=== PATIENT | male | born 1945 | race Caucasian/White ===

== ENCOUNTER 2018-09-07 11:24 | Outpatient (CLI) | payer BC, SELFPAY ==
--- NOTE | 2018-09-07 11:00 | DI.RAD_ITS ---
SYMPTOM/DIAGNOSIS: LOW BACK PAIN AND LT HIP PAIN, M25.552 LUMBAR SPINE: There are no prior comparison exams. The vertebral bodies and disc spaces are well maintained in height. There are minimal endplate osteophytes. There are mild facet joint degenerative changes. There is no scoliosis, spondylolysis or spondylolisthesis. The hip joints and SI joints are unremarkable where visualized. IMPRESSION: Mild degenerative changes.
[2018-09-07 12:41] LABS: ALT 24 U/L (12-78); AST 19 U/L (15-37); Albumin 3.5 g/dL (3.4-5.0); Alkaline Phosphatase 70 U/L (46-116); Anion Gap 9.1 mmol/L (3-11); BUN 16 mg/dL (7-18); Bilirubin, Direct 0.25 mg/dL (0.00-0.20); Bilirubin, Total 1.4 mg/dL (0.2-1.0); CO2 30.9 mmol/L (21.0-32.0); CREATININE 0.94 mg/dL (0.70-1.30); Calcium 8.9 mg/dL (8.5-10.1); Chloride 112 mmol/L (98-107); Glucose 84 mg/dL (70-100); Potassium 4.4 mmol/L (3.5-5.1); Sodium 152 mmol/L (136-145); Total Protein 6.2 g/dL (6.4-8.2)
[2018-09-08 10:17] LABS: PSA, Screening 1.6 ng/ml (0-6.5)
[2018-09-08 11:08] LABS: Hepatitis C Ab w Rflx HCV PCR Negative (NEGAT)
== END 2018-09-07 11:44 ==
PROVIDERS: PCP Emergency Medicine; Visit Provider Emergency Medicine
DX: M25.552 Pain in left hip (principal); Z80.0 Family history of malignant neoplasm of digestive organs; I10 Essential (primary) hypertension; M54.5 Low back pain; M47.816 Spondylosis without myelopathy or radiculopathy, lumbar region; Z12.5 Encounter for screening for malignant neoplasm of prostate
CPT/HCPCS: 36415; 80048; 80076; 84153; 86803; 72110

== ENCOUNTER 2018-09-09 10:58 | Outpatient (CLI) | payer BC, SELFPAY ==
[2018-09-09 13:04] LABS: ALT 24 U/L (12-78); AST 18 U/L (15-37); Albumin 3.6 g/dL (3.4-5.0); Alkaline Phosphatase 75 U/L (46-116); Anion Gap 6.4 mmol/L (3-11); BUN 20 mg/dL (7-18); Bilirubin, Total 1.4 mg/dL (0.2-1.0); CO2 30.6 mmol/L (21.0-32.0); CREATININE 1.04 mg/dL (0.70-1.30); Calcium 8.9 mg/dL (8.5-10.1); Calculated LDL 109 mg/dL; Chloride 108 mmol/L (98-107); Cholesterol 176 mg/dL (50-200); Glucose 87 mg/dL (70-100); HDL Cholesterol 57 mg/dL (40-60); Potassium 3.8 mmol/L (3.5-5.1); Sodium 145 mmol/L (136-145); Total Protein 6.4 g/dL (6.4-8.2); Triglyceride 51 mg/dL (30-150)
[2018-09-09 13:46] LABS: Bilirubin, Direct 0.25 mg/dL (0.00-0.20)
== END 2018-09-09 11:18 ==
LOC: LBO 11:04 → LOS 12:51
PROVIDERS: PCP Emergency Medicine; Visit Provider Emergency Medicine
DX: R89.9 Unspecified abnormal finding in specimens from other organs, systems and tissues (principal); I10 Essential (primary) hypertension
CPT/HCPCS: 36415; 80048; 80061; 80076; 83721

== ENCOUNTER 2018-12-25 01:05 | Outpatient (CLI) | payer BC, SELFPAY ==
[2018-12-25 10:39] LABS: ALT 22 U/L (16-63); AST 21 U/L (15-37); Albumin 3.9 g/dL (3.4-5.0); Alkaline Phosphatase 74 U/L (46-116); Bilirubin, Total 2.1 mg/dL (0.2-1.0); Calculated LDL 116 mg/dL; Cholesterol 182 mg/dL (50-200); HDL Cholesterol 59 mg/dL (40-60); Total Protein 6.8 g/dL (6.4-8.2); Triglyceride 36 mg/dL (30-150)
[2018-12-25 10:47] LABS: Bilirubin, Direct 0.39 mg/dL (0.00-0.20)
[2018-12-27 11:36] LABS: Hepatitis C Ab w Rflx HCV PCR Negative (NEGAT)
== END 2018-12-25 01:25 ==
PROVIDERS: PCP Emergency Medicine; Visit Provider Emergency Medicine
DX: Z80.0 Family history of malignant neoplasm of digestive organs (principal); I10 Essential (primary) hypertension; Z11.59 Encounter for screening for other viral diseases
CPT/HCPCS: 36415; 80061; 80076; 86803

== ENCOUNTER 2019-10-11 02:07 | Outpatient (CLI) | payer MEDICARE, SELFPAY ==
[2019-10-11 08:55] LABS: Platelet Count 112 x1000/uL (130-400)
== END 2019-10-11 02:27 ==
PROVIDERS: PCP Emergency Medicine; Visit Provider Emergency Medicine
DX: D69.6 Thrombocytopenia, unspecified (principal)
CPT/HCPCS: 36415; 85049

== ENCOUNTER → 2019-11-17 08:23 | Outpatient (BNVA) | payer MEDICARE, SELFPAY | PROVIDERS: PCP Emergency Medicine; Referring Provider Emergency Medicine; Visit Provider Physical Therapy Assistant | DX: Z12.11 Encounter for screening for malignant neoplasm of colon (principal); Z87.19 Personal history of other diseases of the digestive system; I10 Essential (primary) hypertension ==

== ENCOUNTER 2019-12-02 07:38 | Day surgery (SDC) | payer MEDICARE, SELFPAY ==
[2019-12-02 07:46] VITALS: BP 118/67; PULSE 47; RESP 16; TEMP 36.4; O2SAT 98
[2019-12-02] MEDS: Lactated Ringers 1,000 ML 80 ML IV (08:26)
--- NOTE | 2019-12-02 08:27 | NUR.NOTE ---
Nursing Note: Pt had a vagal response to IV initiation. Pt was able to verbalize, I don't feel so well, I'm leaving you. IV had been started, this nurse was securing IV site when this happened. Pt call yarbrough was hit, this pt laid Pt's HOB down and got pt into [place] and got vitals: 87/48/98%, 38HR. cold cloth placed on forehead. Pt feeling much better after this. vitals at 0832a: 94/55, 42HR, 100%. Pt HOB lifted to 45 degrees.
--- NOTE | 2019-12-02 09:13 | PDOC.DSDIS_ITS ---
Discharge Plan Disposition Patient Disposition: HOME Condition: Good Discharge Details Reason For Visit: Colonoscopy Attending Provider: Ghada Howell Primary Care Provider: Dung Silver Home Meds and New Rx's Prescriptions: Continued hydrochlorothiazide 12.5 mg capsule 12.5 mg PO DAILY Qty: 90 RF: 4 losartan 100 mg tablet 100 mg PO DAILY Qty: 90 RF: 4 Men's Daily Multivit-Mineral 0.4-600 mg-mcg tablet 1 tab PO DAILY RF: 0 rosuvastatin [Crestor] 10 mg tablet 10 mg PO DAILY Qty: 90 RF: 3 Discontinued polyethylene glycol 3350 17 gram/dose powder 238 g PO ONCE Qty: 238 RF: 0 bisacodyl [Dulcolax (bisacodyl)] 5 mg tablet,delayed release (DR/EC) 5 mg PO ONCE Qty: 4 RF: 0 Discharge Instructions Additional Instructions: Findings: A polyp was removed from the rectum. My office will send a letter with the biopsy results. Follow up: A follow up colonoscopy will be needed in 3-5 years depending on the biopsy results. Please call if you develop: fevers >101.5 Nausea or Vomiting Abdominal pain that is not transient Bleeding DAY SURGERY UNIT POST COLONOSCOPY INSTRUCTIONS 1. Because there will be medication in your system for the next 24 hours, you may feel a little sleepy. Your coordination will be affected. Therefore: a. Do not drive or operate dangerous equipment for 24 hours. b. Do not drink alcohol beverages for 24 hours (not even beer). c. Plan to go home and rest for the day. 2. Generally there are no restrictions on your activity after a day or so has g one by, but you may feel a bit fatigued for a few days. 3 After you arrive home you may have a light meal and return to a normal diet as you can tolerate it without feeling sick to your stomach. 4. After surgery, you may feel pain or discomfort. This should be only transient, but if it persists please contact your doctor. 5. If there are any questions regarding the findings of your procedure, please feel free to contact your doctor. 6. If you are unable to contact your doctor with a problem, contact the hospital at [phone]. 7. Continue all your regular medications unless directed otherwise. I understand the above instructions and have no questions. Signature of Patient or Responsible Adult Escort Date/Time Name of Responsible Adult Escort Signature of Nurse Date/Time Activity:: Activity as Tolerated Diet:: As Tolerated Discharge Orders Discharge Orders: Discharge Order (Routine); Ordered 12/02/19 Ordered By: Ghada Howell DS: Diagnosis Discharge Diagnosis (1) Rectal polyp: Status: Acute (2) Diverticulosis: Status: Acute
--- NOTE | 2019-12-02 09:14 | W.COLOREPORT ---
Date of service: 12/02/19 Time of Service: 10:09 Colonoscopy Report Date of procedure: 12/02/19 Pre-op diagnosis general: Screening Post-op diagnosis procedure note: other (Diverticulosis, rectal polyp) Procedure: Colonoscopy with snare polypectomy Surgeon: Ghada Howell Anesthesia proc note operative: MAC Indications: This 74 year old man presents for routine screening colonoscopy. His last colonoscopy in 2009 was normal. He had internal hemorrhoids treated at that time. No symptoms or FH colon cancer. Procedure Description: The patient was placed in the left [place] position. Propofol was titrated to sedation. Digital rectal examination revealed no abnormalities. The scope was advanced to the cecum without difficulty. The ileocecal valve and appendiceal orifice were clearly identified. The prep was good. The scope was slowly withdrawn over the course of greater than 6 minutes with no abnormalities seen in the ascending, transverse, descending or sigmoid colon. In the rectum a less than 1cm polyp on a small stalk was removed with the snare. Two hemostatic clips were placed with good result. No prominent internal hemorrhoids or other abnormality was noted on retroflexed view. The patient tolerated the procedure well and was stable to recovery. Plan for follow up colonoscopy in 3-5 years depending on biopsy results.
--- NOTE | 2019-12-02 09:47 | BOWEL_PTH ---
PATIENT: Hadley Roberts LOC: [facility] U#:[id number] AGE/SX: 74/M ROOM: RE12/02/[address]: Ghada Howell MD : 1945 BED: DIS: 12/02/2019 SPEC #: [id number] RECD: 12/02/19 12:54 STATUS: SHEILA REQ #: [id number] JAKE: 12/02/19 09:[address]: Ghada Howell DEPT: Surgical Specimen RECD BY: Chloe Luis ENTERED: 12/02/19 12:55 SP TYPE: Bowel OTHR DR: Dung Silver DO Tissues: 1 - BIOPSY BOWEL Procedures: GROSS AND MICRO LEVEL 4 Comments: [id number]
[2019-12-02 10:27] VITALS: BP 115/66; PULSE 53; RESP 17; TEMP 36.4; O2SAT 97
== END 2019-12-02 11:00 | disposition home or self-care (01) ==
PROVIDERS: PCP Emergency Medicine; Visit Provider Surgery
PROC: 0DJD8ZZ Inspection of Lower Intestinal Tract, Via Natural or Artificial Opening Endoscopic (ICD-10-PCS; CPT 45378; principal; 2019-12-02 09:00)
DX: Z12.11 Encounter for screening for malignant neoplasm of colon (principal); I10 Essential (primary) hypertension; D12.8 Benign neoplasm of rectum
CPT/HCPCS: 45385; 88305; J2001

== ENCOUNTER 2020-01-06 02:15 | Outpatient (CLI) | payer MEDICARE, SELFPAY ==
[2020-01-06 08:05] LABS: Abs Immature Grans 0.01 10^3/uL (0.0-0.06); Absolute Basophil Count 0.03 10^3/uL (0.0-0.2); Absolute Eosinophil Count 0.12 10^3/uL (0.0-0.7); Absolute Lymphocyte Count 1.39 10^3/uL (1.2-3.4); Absolute Monocyte Count 0.41 10^3/uL (0.1-0.8); Absolute Neutrophil Count 2.39 10^3/uL (1.2-6.7); Basophils % 0.7; Eosinophils % 2.8; HGB 15.8 g/dL (13.5-17.5); Immature Grans % 0.2; MCH 31.2 pg (27.0-33.0); MCHC 34.3 % (32.0-36.0); MCV 90.9 fL (80-95); MPV 9.8 fL (8.0-11.0); Monocytes % 9.4; Neutrophils % 54.9; Nucleated RBC 0 %; Platelet Count 119 10^3/uL (130-400); RBC 5.06 10^6/uL (4.36-5.78); RDW 12.2 % (11.8-14.1); RDW-SD 40.8 fL; WBC 4.35 10^3/uL (4.4-10.8)
== END 2020-01-06 02:35 ==
PROVIDERS: PCP Emergency Medicine; Visit Provider Emergency Medicine
DX: D69.6 Thrombocytopenia, unspecified (principal)
CPT/HCPCS: 36415; 85025

== ENCOUNTER 2020-10-17 02:21 | Outpatient (CLI) | payer MEDICARE, SELFPAY ==
[2020-10-17] MEDS: Omnipaque 350 MG/ML 100 ML BTL IJ (14:42)
[2020-10-17] MEDS: Normal Saline - Diluent 50 ML VIAL IV (14:43)
--- NOTE | 2020-10-17 14:55 | DI.CT_ITS ---
Exam(s) CT ABDOMEN PELVIS WO/W EXAM: CT ABDOMEN PELVIS WO/W CLINICAL HISTORY: recurrent micro hematuria,R31.29. TECHNIQUE: Imaging Protocol: Performed both without and with IV contrast using CT urogram protocol. Axial computed tomography images with coronal and sagittal reformatted images were created and revie wed CONTRAST MATERIAL: Intravenous: Omnipaque 100cc Oral: None COMPARISON: No exams were available for comparison FINDINGS: VISUALIZED LUNG BASES: Minimal benign-appearing increased markings in the left lung base posterior ba magdalena segment. There are no pleural effusions.. ABDOMEN: KIDNEYS: There bilateral nephrolithiasis. there is a solitary 1 millimeter calculus in the right kid minesh. there are 2 calculi in left kidney. the larger is in the inferior pole calyx and measures 7 x 5 millimeters, nonobstructive. There are bilateral parapelvic cysts, larger and more numerous on the left side and causing attenuati on of the infundibulum. However, there is no hydronephrosis on either side. There is a solitary ure ter on each side which exhibits normal caliber. There are no solid renal masses nor cortical cysts. Renal veins are patent bilaterally. URINARY BLADDER: Not distended. Indented by enlarged slightly lobulated prostate gland. No evidence of bladder diverticuli. No obvious bladder masses. There is no ascites. LIVER: There are no focal hepatic lesions evident . GALLBLADDER/BILIARY: No obvious gallbladder pathology. CBD is not dilated. PANCREAS: No evidence of pancreatic mass nor dilatation of the pancreatic duct. SPLEEN: Spleen is not enlarged. No obvious intrasplenic lesions. Splenic and portal veins are paten t. ADRENALS: There is a 12 x 11 millimeter nodule at the genu of the right adrenal gland. There is a si milar size nodule in the lateral limb of the left adrenal gland. ABDOMINAL AORTA: Abdominal aorta is not enlarged. Inferior abdominal aorta is atherosclerotic below the level the patent takeoff point of the inferior mesenteric artery.. However, no aneurysm at this level nor in the iliac arteries. No high-grade stenosis noted in the iliac vessels nor in the common femoral arteries. LYMPH NODES:There is no retroperitineal nor paraaortic adenopathy. ABDOMINAL WALL: No evidence of significant anterior abdominal wall hernia. GI: There is no evidence of bowel obstruction, free air, nor abscess. PELVIS: GI: No evidence of appendicitis.Redundant sigmoid. No evidence of diverticulitis. LYMPH NODES: There is no intrapelvic nor inguinal adenopathy. REPRODUCTIVE: Enlarged lobulated prostate. Contains a few central calcifications. URINARY BLADDER: Not distended. No calculi nor masses within the bladder. OSSEOUS: Benign intraosseous hemangioma noted within the L1 vertebral body. No lytic osseous lesions identified. IMPRESSION: 1. Bilateral nephrolithiasis. The largest calculus is in the inferior pole the left kidney and measu res 7 x 5 millimeters. No obstruction. 2. There are bilateral parapelvic cysts, more prominent and numerous on the left side. No solid mookie l masses. No hydronephrosis. 3. Solitary nondilated ureter on each side 4. No obvious abnormality in the urinary bladder. Prostate gland is noted to be moderately enlarged. The urinary bladder is not distended. There are no bladder diverticuli evident. 5. Bilateral small adrenal nodules as described above. These are probably incidental adenomas. RADIATION DOSE DELIVERED: 2,477.36mGy.cm Total DLP DATA REPOSITORY: All CT scans at this facility are submitted to the National Radiology Data Registry (NRDR) Dose Index Registry (DIR) with the [employer] (A[employer]). RADIATION OPTIMIZATION: All CT scans at this facility use at least one of these dose optimization te chniques: automated exposure control; mA and/or kV adjustment per patient size (includes targeted exa ms where dose is matched to clinical indication); or iterative reconstruction.
== END 2020-10-17 02:41 ==
PROVIDERS: PCP Emergency Medicine; Visit Provider Emergency Medicine
DX: N20.0 Calculus of kidney; N40.0 Benign prostatic hyperplasia without lower urinary tract symptoms; E27.8 Other specified disorders of adrenal gland; N28.1 Cyst of kidney, acquired
CPT/HCPCS: 74178; 82565; J3490

== ENCOUNTER → 2020-11-23 08:20 | Outpatient (BNVA) | payer MEDICARE, SELFPAY | PROVIDERS: PCP Emergency Medicine; Referring Provider Emergency Medicine; Visit Provider Nurse Practitioner Gerontology | DX: N20.0 Calculus of kidney (principal); R31.29 Other microscopic hematuria | CPT/HCPCS: 81003; 99215 ==

== ENCOUNTER 2021-10-29 01:34 | Outpatient (CLI) | payer MEDICARE, SELFPAY ==
[2021-10-29 10:47] LABS: Bilirubin Negative (Negative); Blood Trace-intact (Negative); Clarity Clear (Clear); Glucose Negative (Negative); Ketones Negative (Negative); Leukocyte Esterase Negative (Negative); Nitrite Negative (Negative); Specific Gravity 1.025 (1.005-1.025); Urobilinogen 0.2 EU/dL (Up TO 0.2)
[2021-10-29 10:47] LABS: Abs Immature Grans 0.01 10^3/uL (0.0-0.06); Absolute Basophil Count 0.02 10^3/uL (0.0-0.2); Absolute Eosinophil Count 0.12 10^3/uL (0.0-0.7); Absolute Lymphocyte Count 1.21 10^3/uL (1.2-3.4); Absolute Neutrophil Count 3.05 10^3/uL (1.2-6.7); Basophils % 0.4; Eosinophils % 2.4; HCT 47.7 % (40.0-50.0); HGB 16.4 g/dL (13.5-17.5); Immature Grans % 0.2; Lymphocytes % 24.6; MCH 31.5 pg (27.0-33.0); MCHC 34.4 % (32.0-36.0); MCV 92 fL (80-95); Monocytes % 10.2; Neutrophils % 62.2; Platelet Count 106 10^3/uL (130-400); RBC 5.21 10^6/uL (4.36-5.78); RDW 12.5 % (11.8-14.1); WBC 4.91 10^3/uL (4.4-10.8)
[2021-10-29 10:58] LABS: Bacteria Rare HPF (Negative); C & S Indicated? No; Casts Negative LPF (Negative); Crystals Negative HPF (Negative); Epithelial Cells Rare HPF (Negative); Mucus Heavy (Negative); WBC 0-2 HPF (0-5)
[2021-10-29 11:08] LABS: ALT 33 U/L (16-63); AST 25 U/L (15-37); Albumin 3.7 g/dL (3.4-5.0); Alkaline Phosphatase 84 U/L (46-116); Anion Gap 6.5 mmol/L (3-11); BUN 20 mg/dL (7-18); Bilirubin, Total 1.2 mg/dL (0.2-1.0); CO2 33.5 mmol/L (21.0-32.0); CREATININE 1.2 mg/dL (0.70-1.30); Calcium 9.1 mg/dL (8.5-10.1); Calculated LDL 89 mg/dL (<100); Chloride 103 mmol/L (98-107); Cholesterol 160 mg/dL (<200); Estimated GFR 59.18 (mL/min/1.73m2); Glucose 99 mg/dL (74-106); HDL Cholesterol 64 mg/dL (40-60); Sodium 143 mmol/L (136-145); Total Protein 7.3 g/dL (6.4-8.2); Triglyceride 35 mg/dL (<150)
[2021-10-29 18:32] LABS: PSA, Screening 3.2 ng/mL (<=6.5)
== END 2021-10-29 01:35 | disposition home or self-care (01) ==
PROVIDERS: PCP Family Medicine; Visit Provider Family Medicine
DX: I10 Essential (primary) hypertension (principal); E78.5 Hyperlipidemia, unspecified; D69.3 Immune thrombocytopenic purpura; R30.0 Dysuria; R31.29 Other microscopic hematuria; Z12.5 Encounter for screening for malignant neoplasm of prostate
CPT/HCPCS: 36415; 80053; 80061; 84153; 81003; 81015; 85025

== ENCOUNTER → 2021-11-15 00:46 | Outpatient (CLI) | payer MEDICARE, SELFPAY ==
--- OUTSIDE RECORDS SUMMARY | 2021-11-15 00:50 | XMS_ITS | Encounter Summary ---
:1945 Author Organization [facility] [place] [address] Care Team Providers Name Role Phone NadeemDung lopez Primary Care Provider Encounter Details Date Type Department Care Team Description 09/13/2020 Orders Only Hematology and Jeniffer Jimenez Hematuria , unspecified Oncology at [facility] M, [place] [address] Social History Tobacco Use Types Packs/Day Years Used Date Never Smoker Smokeless Tobacco: Never Used Alcohol Use Standard Drinks/Week Comments Yes 0 (1 standard drink = 0.6 oz pure alcoho l) Rare use Alcohol Habits Answer Date Recorded How often do you have a drink containing alcohol? Not asked How many drinks containing alcohol do you have on a typical Not asked day when you are drinking? How often do you have six or more drinks on one occasion? No t asked Comment: Rare use 11/22/2019 Sex Assigned at Date Recorded Not on file documented as of this encounter Plan of Treatment Not on filedocumented as of this encounter Results (ABNORMAL) Urinalysis with reflex Culture (09/19/2020 9:52 AM EDT) [facility] Method Time Signature Glucose UA Negative Negative [facility] mg/dL [facility] Protein UA Negative Negative [facility] mg/dL [facility] Bilirubin UA Negative Negative [facility] mg/dL [facility] Comment: Clinical correlation required for positi ve Urine Bilirubin results as false positive may occur with some drugs and d rug related products. If a false positive is suspected a serum total bili rodriguez should be considered if clinically indicated. Urobilinogen UA Normal Normal mg/dL [facility] pH UA 6.5 5.0 - 8.0 [facility] Blood UA Trace (A) Negative mg/dL [facility] Ketones UA Negative Negative mg/dL [facility] Nitrite UA Negative Negative [facility] Leukocytes UA Negative Negative mcL [facility] Appearance UA Clear Clear [facility] Spec [place] UA 1.007 1.005 - 1.030 [facility] Color UA Yellow Yellow [facility] Culture Reflexed No [facility] Specimen Anatomical Collection Method Collection Time Receive d Time (Source) Location / / Volume Laterality Clean Catch 09/19/2020 9:52 AM Urine EDT 10:17 AM EDT Resulting Agency Comment Spec In Lab Kemi Garcia MD URINE ORDERABLES Performing Organization Address City/State/[place] [address] documented in this encounter Visit Diagnoses Diagnosis Hematuria, unspecified type documented in this encounter Care Teams Industrial Technology Teacher Relationship Specialty Start Date End Date Dung Silver DO PCP - General 10/03/[address] [place] [address] documented as of this encounter
--- OUTSIDE RECORDS SUMMARY | 2021-11-15 00:50 | XMS_ITS | Encounter Summary ---
:1945 Author Organization [facility] [place] [address] Care Team Providers Name Role Phone Dung Silver DO Primary Care Provider Encounter Details Date Type Department Care Team Description 11/14/2019 Telephone Hematology and Oncology at [facility] [place]enez sa, [place] [address] Social History Tobacco Use Types Packs/Day Years Used Date Never Smoker Smokeless Tobacco: Never Used Sex Assigned at Date Recorded Not on file documented as of this encounter Miscellaneous Notes Telephone Encounter - Jeniffer iJmenez RN - 11/14/2019 3:32 PM EDT Patient completed Preoperative Patient Health Assessment for pt BMBX in office visit on 10/28/2019. PPHA completed and faxed to the [facility] ([phone]) for processing. documented in this encounter Plan of Treatment Not on filedocumented as of this encounter Visit Diagnoses Not on filedocumented in this encounter Care Teams Proposal Manager Writer Relationship Specialty Start Date End Date Dung Silver DO PCP - General 10/03/[address] [place] [address] documented as of this encounter
--- OUTSIDE RECORDS SUMMARY | 2021-11-15 00:50 | XMS_ITS | Encounter Summary ---
:1945 Author Organization [facility] [place] [address] Care Team Providers Name Role Phone Dung Silver DO Primary Care Provider Encounter Details Date Type Department Care Team Description 10/03/2011 Office Visit Vascular Surgery at [facility] [place] [address] Social History Tobacco Use Types Packs/Day Years Used Date Never Assessed Sex Assigned at Date Recorded Not on file documented as of this encounter Plan of Treatment Not on filedocumented as of this encounter Procedures Procedure Name Priority Date/Time Associated Diagnosis Comme nts CAROTID DUPLEX, Routine 10/03/2011 12:33 PM Elevated lipids Re sults for this BILATERAL EDT procedure are i n the results section. documented in this encounter Results Cerebrovascular Duplex, Bilateral (10/03/2011 12:33 PM EDT) Component Value Ref Test Analysis Performed At [facility] Range Method Time Signature VB Text VASCUBASE Report Department: Vascular Surgery Lab Patient: [id number] (ALEJO CHAWLA) CPT Code: 08322 ICD-9: 401.9 Referring Physician: DUNG SILVER Indication: ?HTN, family hx of CVA ICD9- 401.9 Findings: Right ICA Proximal ?PSV (cm/s): 49 ?EDV (cm/s): 17 ?ICA/CCA: 0.8 ?Plaque Structure: Echogenic ?Plaque Surface: Smooth ?%Stenosis: <15% ICA Distal ?PSV (cm/s): 53 ?EDV (cm/s): 21 ?ICA/CCA: 0.9 CCA Distal ?PSV (cm/s): 58 ?EDV (cm/s): 13 CCA Middle ?%Stenosis: Minimal CCA Proximal ?PSV (cm/s): 93 ?EDV (cm/s): 10 External Carotid Artery ?PSV (cm/s): 72 ?EDV (cm/s): 4 ?%Stenosis: <50% Vertebral ?PSV (cm/s): 50 ?EDV (cm/s): 12 Left ICA Proximal ?PSV (cm/s): 61 ?EDV (cm/s): 23 ?ICA/CCA: 1.1 ?Plaque Structure: Echogenic ?Plaque Surface: Smooth ?%Stenosis: <15% ICA Distal ?PSV (cm/s): 93 ?EDV (cm/s): 27 ?ICA/CCA: 1.7 CCA Distal ?PSV (cm/s): 56 ?EDV (cm/s): 15 CCA Middle ?%Stenosis: Minimal CCA Proximal ?PSV (cm/s): 115 ?EDV (cm/s): 21 External Carotid Artery ?PSV (cm/s): 64 ?EDV (cm/s): 7 ?%Stenosis: <50% Vertebral ?PSV (cm/s): 33 ?EDV (cm/s): 8 Interpretation: RIGHT: A thin layer of circumferential p laque is present in the common carotid artery causing minimal steno sis. There is minimal smooth plaque in the proximal internal carotid artery caus ing < 15% stenosis when compared to the more distal internal carotid artery. The bifurcation level is in the mid neck. LEFT: A thin layer of circumferential plaque is present in the common carotid artery causing minimal steno sis. There is minimal smooth plaque in the proximal internal carotid artery caus ing < 15% stenosis when compared to the more distal internal carotid artery. The bifurcation level is in the mid neck. Vertebral Artery Data: Antegrade blood flow with normal Doppler waveforms and velocities bilaterally. Accuracy Data: The following statistics are based on comparisons performe d at [facility] between noninvasive carotid artery d uplex data and arteriographic evaluation of the same patients from [id number]. Q / A Sens. Spec. PPV NPV Accuracy Carotid 93% 98% 97% 95% 96% Signed by MELANIE CANALES on 2011-10-03 03:59:19 PM VB Text End of Report VASCUBASE Report Specimen (Source) Anatomical Collection Method Collection Time Re ceived Time Location / / Volume Laterality 10/03/2011 12:33 PM EDT Dung Silver DO VASCULAR ORDERABLES Performing Organization Address City/State/ZIP Code Phon e Number [facility] documented in this encounter Visit Diagnoses Diagnosis Elevated lipids Other and unspecified hyperlipidemia documented in this encounter Care Teams Divorce Lawyer Relationship Specialty Start Date End Date Dung Silver DO PCP - General 10/03/[address] [place] [address] documented as of this encounter
--- OUTSIDE RECORDS SUMMARY | 2021-11-15 00:50 | XMS_ITS | Encounter Summary ---
:1945 Author Organization [facility] [place] [address] Care Team Providers Name Role Phone Dung Silver DO Primary Care Provider Encounter Details Date Type Department Care Team Description 11/04/2019 TH Visit Hematology and Alec Garcia (TeleHealth) Oncology at [facility] MD Kemi [facility] [place] [address] HEMATOLOGY/ONCOLOG [phone] Y DEPT. [place], [place] [address] Social History Tobacco Use Types Packs/Day Years Used Date Never Smoker Smokeless Tobacco: Never Used Sex Assigned at Date Recorded Not on file documented as of this encounter Progress Notes Kemi Garcia MD - 11/04/2019 2:30 PM EDT Images from the original note were not included. HEMATOLOGY TOV NOTE Patient identity was confirmed and patient verbally consented to this telephone visit and understands that this visit may be billed, similar to a clinic office visit. Patient understands that a telephone visit prevents the ability to complete a full evaluation which normally includes vitals and physical exam. Patient understands if there are concerns and he/she may be asked to have an office visit. DATE OF VISIT : 11/04/19 REASON FOR VISIT: Alejo Chawla is a 74 y.o. male referred by Dung Rich for evaluation of thrombocytopenia. The history is obtained from the patient, and I also have reviewed all the available medical recordsprovided by the referring physician and located in the electronic medical records. HISTORY OF PRESENT ILLNESS Alejo Chawla is a 74 y.o. male with PMH of hypertension, hyperlipidemia presenting for evaluation of leukopenia and thrombocytopenia. Presentation: Routine CBC at PCP's office showed abnormal CBC. He didn't have CBC checked at [facility] in the past few years. This is the 1st time he is aware of abnormal CBC. Labs from referring MD: ??? CBC on 09/28/2019: WBC 3.86, diff not available, Hgb 16.2, MCV 90.6, platelet count 122k ??? 10/11/2019: Platelet count 112K ??? Creatinine 1.21, GFR 59 INTERIM VISIT: No new issues since last seen. - No active cardiac/resp/GI issues; Rest of the ROS: Negative PROBLEM LIST There are no active problems to display for this patient. PAST SURGICAL Hx: No past surgical history on file. MEDICATIONS ??? hydroCHLOROthiazide (MICROZIDE) 12.5 mg Capsule ??? losartan (COZAAR) 100 mg Tablet ??? rosuvastatin (Crestor) 10 mg Tablet ??? pravastatin (PRAVACHOL) 40 mg Tablet ??? atorvastatin (LIPITOR) 10 mg tablet ALLERGIES/ADR No Known Allergies PERSONAL and SOCIAL HISTORY ?? Lives in [place], [place] from August to Dec, but, mainly lives in [place]: ?? Work history: Retired. 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 ?? ETOH: rare ?? Smoking: No ?? HIPPA Contact Permission: OK to leave voice mail on phone. FAMILY HISTORY No family history on file. Has one brother and one sister. Brother recently from liver cancer. . Has one son and one daughter. No other cancers or blood disorders in the family PHYSICAL EXAM VITAL SIGNS: There were no vitals taken for this visit. Exam not performed as this is TOV. LABORATORY Results for ALEJO CHAWLA ( ) as of 11/04/2019 12:29 Ref. Range 10/28/2019 14:05 10/28/2019 14:05 WBC Latest Ref Range: 4.0 - 9.5 x10(3)/mcL 5.0 RBC Latest Ref Range: 4.58 - 5.54 x10(6)/mcL 4.99 Hemoglobin Latest Ref Range: 13.7 - 16.5 gm/dL 15.6 Hematocrit Latest Ref Range: 40.5 - 48.5 % 45.4 MCV Latest Ref Range: 82.9 - 93.1 fL 91.0 MCH Latest Ref Range: 27.5 - 32.1 pg 31.3 MCHC Latest Ref Range: 32.0 - 35.7 gm/dL 34.4 RDWSD Latest Ref Range: 36.0 - 45.0 fL 40.4 RDWCV Latest Ref Range: 11.4 - 13.8 % 12.1 Platelets Latest Ref Range: 145 - 357 x10(3)/mcL 107 (L) 107 (L) MPV Latest Ref Range: 7.6 - 12.9 fL 10.1 Plat Immature % Latest Ref Range: 0.0 - 7.4 % 2.3 nRBC % Auto Latest Units: % 0.0 nRBC Abs Auto Latest Ref Range: 0.000 - 0.000 x10(3)/mcL 0.000 Neutr Abs (ANC) Latest Ref Range: 1.70 - 6.10 x10(3)/mcL 3.15 Neutrophils % Latest Units: % 63.3 Immature Gran % Latest Units: % 0.40 Lymphocytes % Latest Units: % 26.5 Monocytes % Latest Units: % 7.8 Eosinophils % Latest Units: % 1.4 Basophils % Latest Units: % 0.6 Edna Gran Abs Latest Ref Range: 0.00 - 0.04 x10(3)/mcL 0.02 Lymphocytes Abs Latest Ref Range: 0.9 - 3.2 x10(3)/mcL 1.3 Monocyte Abs Latest Ref Range: 0.3 - 0.9 x10(3)/mcL 0.4 Eosinophils Abs Latest Ref Range: 0.0 - 0.4 x10(3)/mcL 0.1 Basophils Abs Latest Ref Range: 0.0 - 0.1 x10(3)/mcL 0.0 Plat Estimate Unknown Decreased RBC Morphology Unknown Normal Periph Smear Rev Unknown See Comment Immunophenotyping Flow Unknown See Comment LDH Latest Ref Range: 110 - 220 unit/L 143 Total Prot Elec Latest Ref Range: 6.1 - 8.0 gm/dL 6.3 Albumin Elect Latest Ref Range: 3.60 - 6.00 gm/dL 4.37 Alpha1-Globulin Latest Ref Range: 0.10 - 0.30 gm/dL 0.15 Alpha2-Globulin Latest Ref Range: 0.40 - 0.90 gm/dL 0.52 Beta Globulin Latest Ref Range: 0.50 - 1.00 gm/dL 0.54 Gamma Globulin Latest Ref Range: 0.50 - 1.30 gm/dL 0.72 M1 Band Latest Ref Range: None Detected None Detected [place] Free Light Chain Latest Ref Range: 0.72 - 2.75 mg/dL 1.36 Lambda Free Light Chain Latest Ref Range: 0.57 - 2.15 mg/dL 0.75 [place] Lambda FLC Ratio Latest Ref Range: 0.4000 - 2.5800 1.8133 Folate Lvl Latest Ref Range: 4.8 - 24.2 ng/mL >20.0 Vitamin B-12 Latest Ref Range: 232 - 1,245 pg/mL 566 IgG Latest Ref Range: 700 - 1,600 mg/dL 1,037 IgA Latest Ref Range: 70 - 400 mg/dL 201 IgM Latest Ref Range: 40 - 230 mg/dL 84 Methylmalonic Acid Latest Ref Range: <=0.40 nmol/mL 0.16 Peripheral blood, smear review: - Mild thrombocytopenia, otherwise normal CBC and peripheral blood ?? morphology Peripheral blood, flow cytometry: 1. No immunophenotypically abnormal T-cell or monoclonal B-cell population RADIOLOGY - None ASSESSMENT & PLANS Alejo Chawla is a 74 y.o. male with PMH of hypertension, hyperlipidemia referred for evaluation of leukopenia and thrombocytopenia. # New onset leukopenia and thrombocytopenia: Repeat CBC showed normal WBC with normal differential. However, his platelet count remained low, at 102k. W/up negative for nutritional deficiencies, monoclonal gammopathies. Peripheral smear is unrevealing. Flow didn't show any morphologically abnormal forms. Low immature platelet fraction suggests de creased bone marrow platelet production, MDS. So, I recommend bone marrow biopsy. Discussed all this. Pt agreed with the plan - F/up a week after the Bx. Total time spent: ~ 12 mts Thank you Dung Angulo for asking us to see this very pleasant patient. Please don't hesitate to contact me if you'd like to discuss this patient's situation further. Kemi Garcia MD [facility] [place] CC: DO Nadeem Yeh Thomas documented in this encounter Plan of Treatment Not on filedocumented as of this encounter Visit Diagnoses Diagnosis Thrombocytopenia Thrombocytopenia, unspecified documented in this encounter Care Teams Accounts Receivable Associate Relationship Specialty Start Date End Date Dung Silver DO PCP - General 10/03/[address] [place] [address] [address] [facility] [address] [place] [address] documented as of this encounter
--- OUTSIDE RECORDS SUMMARY | 2021-11-15 00:50 | XMS_ITS | Encounter Summary ---
:1945 Author Organization [facility] [place] [address] Care Team Providers Name Role Phone Dung Silver DO Primary Care Provider Encounter Details Date Type Department Care Team Description 12/12/2019 Telephone Hematology and Oncology at [facility] [place] [place], [place] [phone] Social History Tobacco Use Types Packs/Day [...] encounter Miscellaneous Notes Telephone Encounter - Jeniffer Jimenez RN - 12/12/2019 4:30 PM EDTSummary: External Set Up Message received from secretary bookkeeper: Injection/Infusion Referral Call placed to [facility] [phone] Spoke w/ [employer] Services to be provided for pt are: CBC ~01/06/20 orders faxed to [phone] documented in this encounter Plan of Treatment Not on filedocumented as of this encounter Visit Diagnoses Not on filedocumented in this encounter Care Teams Printing Manager Relationship Specialty Start Date End Date Dung Silver DO PCP - General 10/03/[address] [place] [address] documented as of this encounter
--- OUTSIDE RECORDS SUMMARY | 2021-11-15 00:50 | XMS_ITS | Encounter Summary ---
:1945 Author Organization [facility] [place] [address] Care Team Providers Name Role Phone NadeemDung vital Primary Care Provider Encounter Details Date Type Department Care Team Description 09/19/2020 Hospital Encounter Hematology [place] [phone] Social History Tobacco Use Types Packs/Day [...] on file documented as of this encounter Medications at Time of Discharge Medication Sig Dispensed Refills Start Date End Date multivitamin Capsule Take 1 capsule by 0 mouth daily. hydroCHLOROthiazide Take 12.5 mg by 0 10/10/2019 (MICROZIDE) 12.5 mg Capsule mouth daily. losartan (COZAAR) 100 mg Take 100 mg by 0 020 Tablet mouth daily. rosuvastatin (Crestor) 10 mg Take 40 mg by 0 09/13 Tablet mouth daily. Up to 40mg documented as of this encounter Plan of Treatment Not on filedocumented as of this encounter Visit Diagnoses Not on filedocumented in this encounter Care Teams Electric Screw Driver Operator Relationship Specialty Start Date End Date Dung Silver DO PCP - General 10/03/[address] [place] [address] documented as of this encounter
--- OUTSIDE RECORDS SUMMARY | 2021-11-15 00:50 | XMS_ITS | Encounter Summary ---
:1945 Author Organization [facility] [place] [address] Care Team Providers Name Role Phone Dung Silver DO Primary Care Provider Reason for Visit Reason Comments Follow-up Consultation (Routine) - Closed Specialty Diagnoses / Procedures Referred By Contact Refer red To Contact Hematology and Diagnoses Thrombocytopenia Dung Silver DO [facility] 3[facility] Oncology [address] [place] [phone] Phone: Fax: Referral ID Status Reason Start Date Expiration Date Visits V isits Requested Authorized [id number] Closed Consult, Test 10/21/2019 10/20/2020 1 1 & Treat PCP Updated and/or Approved Encounter Details Date Type Department Care Team Description 10/28/2019 Office Visit Hematology and [place], Leukopenia, unspecified type; Oncology at [facility] [place] Kemi Thrombocytopenia [facility] [address] [place] HEMATOLOGY/ONCOL [address] [facility] DEPT. [phone] [place] [address] Social History Tobacco Use Types Packs/Day Years Used Date Never Smoker Smokeless Tobacco: Never Used Sex Assigned at Date Recorded Not on file documented as of this encounter Last Filed Vital Signs Vital Sign Reading Time Taken Comments Blood Pressure 151/85 10/28/2019 12:48 PM EDT Pulse 57 10/28/2019 12:48 PM EDT Temperature 36.5 ??C (97.7 ??F) 10/28/2019 12:48 PM EDT Respiratory Rate 16 10/28/2019 12:48 PM EDT Oxygen Saturation 98% 10/28/2019 12:48 PM EDT Inhaled Oxygen Concentration - - Weight 87.3 kg (192 lb 6.4 oz) 10/28/2019 12:48 PM EDT Height 178.1 cm (5' 10.12) 10/28/2019 12:48 PM EDT Body Mass Index 27.51 10/28/2019 12:48 PM EDT documented in this encounter Progress Notes Kemi Garcia MD - 10/28/2019 1:00 PM EDT Images from the original note were not included. HEMATOLOGY CONSULTATION VISIT NOTE DATE OF VISIT : 10/28/19 REASON FOR VISIT: Hadley Chawla is a 74 y.o. male referred by Dung Rich for evaluation of thrombocytopenia. The history is obtained from the patient, and I also have reviewed all the available medical recordsprovided by the referring physician and located in the electronic medical records. HISTORY OF PRESENT ILLNESS Hadley Chawla is a 74 y.o. male with PMH of hypertension, hyperlipidemia presenting for evaluation of leukopenia and thrombocytopenia. Presentation: Routine CBC at PCP's office showed abnormal CBC. He didn't have CBC checked at [facility] in the past few years. This is the 1st time he is aware of abnormal CBC. Labs from referring MD: ??? CBC on 09/28/2019: WBC 3.86, diff not available, Hgb 16.2, MCV 90.6, platelet count 122k ??? 10/11/2019: Platelet count 112K ??? Creatinine 1.21, GFR 59 In office today, Hadley Chawla is here for initial consultation. - No B symptoms. - No abnormal bleeding or bruising. - No recurrent infections. - No recent new meds recently. No herbal supplements - No GERD symptoms. - He feels overall healthy, no much health concerns. - No active cardiac/resp/GI issues; Rest of the ROS: Negative REVIEW OF SYSTEMS Constitutional --Energy level: good --Pain: none --Fevers/chills/sweats: No --Unexpected weight loss or gain: No Eyes - No change in vision Ears, nose, throat - No change hearing, no oral or throat pain or thrush Cardiovascular --SOB: No -- Palpitations: No --chest pain: No Respiratory --Cough: No --SOB, CASTILLO: No Gastrointestinal --Appetite: good --Nausea/vomiting: No - Diarrhea/constipation: No - Abd pain: No Genitourinary --Dysuria or hematuria: No Musculoskeletal --Muscle pain or weakness: No --Joint pain or swelling: No Immune System --Recent infections: No Hematology/Lymph --Bruising/bleeding/melena: No --Enlarged nodes or other masses: No Skin --Rashes or petechiae: No Neuro - No Psych: -Anxiety, depressed mood, suicidal or homicidal ideation : No Other ROS: All negative PROBLEM LIST There are no active problems to display for this patient. PAST SURGICAL Hx: No past surgical history on file. MEDICATIONS ??? hydroCHLOROthiazide (MICROZIDE) 12.5 mg Capsule ??? losartan (COZAAR) 100 mg Tablet ??? rosuvastatin (Crestor) 10 mg Tablet ??? pravastatin (PRAVACHOL) 40 mg Tablet ??? atorvastatin (LIPITOR) 10 mg tablet ALLERGIES/ADR No Known Allergies PERSONAL and SOCIAL HISTORY ?? Lives in [place], [place] from August to Dec, but, mainly lives in [place]: ?? Work history: Retired. 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 ?? ETOH: rare ?? Smoking: No ?? HIPPA Contact Permission: OK to leave voice mail on phone. FAMILY HISTORY No family history on file. Has one brother and one sister. Brother recently from liver cancer. . Has one son and one daughter. No other cancers or blood disorders in the family PHYSICAL EXAM VITAL SIGNS: Blood pressure 151/85, pulse 57, temperature 36.5 ??C (97.7 ??F), temperature source Temporal, resp. rate 16, height 178.1 cm (5' 10.12), weight 87.3 kg (192 lb 6.4 oz), SpO2 98 %. ECOG PS: 0 GENERAL: Hadley Chawla is a well-appearing 74 y.o. male in no acute distress. HEENT: Eyes: b/l PERRL, no conjunctival pallor , no scleral icterus; Sinuses: non-tender; Oropharynx: moist , clear, No lesions, No thrush. ENDOCRINE: No thyromegaly palpated. CARDIOVASCULAR: Heart with regular rate and rhythm without S3,S4 or murmurs. PULMONARY: Lungs are clear to auscultation without rales, rhonchi or wheezing. GASTROINTESTINAL: Abdomen soft and non-tender without palpable masses or hepatosplenomegaly. MUSCULOSKELETAL: Neck supple with full ROM. No spine or CVA tenderness. SKIN: No rashes, bruises or petechiae. LYMPH: Rt axilla: ~ 1-1.5cm LN; Lt: couple of ~1cm LNs ; No other abnormal lymphadenopathy. NEUROLOGICAL: Alert and oriented to person, place and time; No focal neurological deficits; EXT: No peripheral edema. PSYCHIATRIC: normal affect and mood LABORATORY No results found for this or any previous visit (from the past 72 hour(s)). RADIOLOGY - None ASSESSMENT & PLANS Hadley Chawla is a 74 y.o. male with PMH of hypertension, hyperlipidemia presenting for evaluation of leukopenia and thrombocytopenia. # New onset leukopenia and thrombocytopenia: No B symptoms at presentation. Bilateral borderline axillary lymphadenopathy noted on exam. No hepatosplenomegaly. I discussed the differential for bi-cyopenias. Given his age, MDS is high on the differential. Will do some labs today for further evaluation. Will check B12, folate ,MMA to evaluate for nutritional deficiencies, will check BRIAN, RF to evaluatefor autoimmune conditions, will check immunoflow, SPEP, SFLCs, Igs to evaluate for possible lymphoproliferative neoplasms, will check HIV, Hep C to evaluate for possible infections. Discussed about bone marrow biopsy if these labs do not explain his cytopenias. Health assessment form completed. TOV on 11/03 to review the labs and for further mgmt. I reviewed my impression and recommendations with Hadley Chawla and answered all the questions.. Pt was instructed to call our clinic with any new symptom or any questions. Thank you Dung Angulo for asking us to see this very pleasant patient. Please don't hesitate to contact me if you'd like to discuss this patient's situation further. Kemi Garcia MD [facility] CC: DO Nadeem Yeh Thomas documented in this encounter Plan of Treatment Not on filedocumented as of this encounter Results (ABNORMAL) Platelet count (10/28/2019 2:05 PM EDT) athologist Signature Platelets 107 (L) 145 - 357 [facility] x10(3)/[facility] LABORATORY Plat Immature 2.3 0.0 - 7.4 [facility] % % [facility] LABORATORY Comment: Limitation of the Immature Platelet Frac tion (IPF)-May be less reliable when the platelet count is less than 54g496/u L due to statistical imprecision. The IPF value provides an assessment of the Bone Marrow production status. ??It is useful in differentiating Thrombocyto penia caused by platelet destruction/consumption versus decreased production. It also helps to determine the imminent release of platelets and ca n be therefore a helpful parameter in Chemotherapy and Bone marrow transplant patients. ELEVATED IPF value: ?? When the bone marrow is in a state of over production such as when increased destruction and consumption are the unde rlying issue. ?? When the marrow is recovering post ch emotherapy or bone marrow transplant. LOW to NORMAL IPF value: ?? When the bone marrow in not respondin g and is in a decreased state of production. References: [employer] The Clinical Value of the Immature Platelet Fraction (IPF) in Cell Recovery Document Number [id number] 08/2010 [employer] The Role of the Imm ature Platelet Fraction (IPF) in the Differential Diagnosis of Thrombocytopen ia, Document [id number] V05 P0514 Specimen Anatomical Collection Method Collection Time Receive d Time (Source) Location / / Volume Laterality Blood specimen 10/28/2019 2:05 PM 020 2:20 (specimen) EDT PM EDT Resulting Agency Comment Spec In Lab Kemi Garcia MD HEMATOLOGY ORDERABLES Performing Organization Address City/State/[place] [address] Peripheral Smear Review (10/28/2019 2:05 PM EDT) [facility] gist Method Time Signature Periph Smear See Comment [facility] LABORATORY Comment: When completed by the Pathologist, gilles noemi [id number] will display under Hematopathology Reports. Specimen Anatomical Collection Method Collection Time Receive d Time (Source) Location / / Volume Laterality Blood specimen 10/28/2019 2:05 PM 020 2:20 (specimen) EDT PM EDT Resulting Agency Comment Spec In Lab Kemi Garcia MD HEMATOLOGY ORDERABLES Performing Organization Address City/[facility]/ZIP Code Phon e Number [address] Folate, serum (10/28/2019 2:05 PM EDT) athologist Signature Folate Lvl >20.0 4.8 - 24.2 [facility] ng/mL [facility] LABORATORY Specimen Anatomical Collection Method Collection Time Receive d Time (Source) Location / / Volume Laterality Blood specimen 10/28/2019 2:05 PM 020 2:20 (specimen) EDT PM EDT Resulting Agency Comment Spec In Lab Kemi Garcia MD CHEMISTRY ORDERABLES Performing Organization Address City/[facility]/ZIP Code Phon e Number [address] Vitamin B12 (10/28/2019 2:05 PM EDT) athologist Signature Vitamin B-12 566 232 - 1,245 [facility] pg/mL [facility] LABORATORY Specimen Anatomical Collection Method Collection Time Receive d Time (Source) Location / / Volume Laterality Blood specimen 10/28/2019 2:05 PM 020 2:20 (specimen) EDT PM EDT Resulting Agency Comment Spec In Lab Kemi Garcia MD CHEMISTRY ORDERABLES Performing Organization Address City/[facility]/ZIP Code Phon e Number [address] Methylmalonic acid, serum (10/28/2019 2:05 PM EDT) Patholo gist Method Time Signature Methylmalonic Acid 0.16 <=0.[address] [facility] OCK nmol/mL [facility] LABORATORY Comment: ADDITIONAL INFORMATIO N This test was developed and its performa nce characteristics determined by [facility] in a manner co nsistent with CLIA requirements. This test has not been anthony ared or approved by the U.S. Food and Drug Administration. Test Performed by: [facility] [place] [address] Slate Worker: Tam Wood M.D. Ph. D.; CLIA# [id number] Specimen Anatomical Collection Method Collection Time Receive d Time (Source) Location / / Volume Laterality Blood specimen 10/28/2019 2:05 PM 020 4:14 (specimen) EDT PM EDT Resulting Agency Comment Spec In Lab Kemi Garcia MD CHEMISTRY ORDERABLES Performing Organization Address City/[facility]/ZIP Code Phon e Number [address] Immunoglobulins, Quantitative (10/28/2019 2:05 PM EDT) P athologist Signature IgG 1,037 700 - 1,600 [facility] mg/dL [facility] LABORATORY Comment: Pediatric Reference Intervals obtained f rom the [employer] Reference Interval project. http://www.Predikt.ca/caliperp roject/index.html IgA 201 70 - 400 mg/dL [facility] LABORATORY IgM 84 40 - 230 mg/dL [facility] LABORATORY Specimen Anatomical Collection Method Collection Time Receive d Time (Source) Location / / Volume Laterality Blood specimen 10/28/2019 2:05 PM 020 2:20 (specimen) EDT PM EDT Resulting Agency Comment Spec In Lab Kemi Garcia MD CHEMISTRY ORDERABLES Performing Organization Address City/[facility]/ZIP Code Phon e Number [address] Free Light Chains, Serum (10/28/2019 2:05 PM EDT) P athologist Signature [place] Free 1.36 0.72 - [facility] Light Chain 2.75 mg/dL [facility] LABORATORY Lambda Free 0.75 0.57 - [facility] Light Chain 2.15 mg/dL [facility] LABORATORY [place] Lambda 1.8133 0.4000 - [facility] FLC Ratio 2.5800 [facility] LABORATORY Comment: Please be advised that the reference int ervals for Serum Free Light Chains and the kappa/lambda ratio have changed as o f 10/13/2019 following a change in methodology. The reference intervals wer e determined from a multi-institutional study performed in 2017. Specimen Anatomical Collection Method Collection Time Receive d Time (Source) Location / / Volume Laterality Blood specimen 10/28/2019 2:05 PM 020 2:20 (specimen) EDT PM EDT Resulting Agency Comment Spec In Lab Kemi Garcia MD CHEMISTRY ORDERABLES Performing Organization Address City/State/[place] [id number] Protein Electrophoresis, serum (10/28/2019 2:05 PM EDT) Patholo gist Method Time Signature Total Prot 6.3 6.1 - 8.0 [place] Elec gm/dL [facility] LABORATORY Albumin Elect 4.37 3.60 - 6.00 [place] gm/dL [facility] LAB[facility] Alpha1-Globul 0.15 0.10 - 0.30 [place] in gm/dL [facility] LAB[facility] Alpha2-Globul 0.52 0.40 - 0.90 [place] in gm/dL [facility] LAB[facility] Beta Globulin 0.54 0.50 - 1.00 [place] gm/dL [facility] Gamma 0.72 0.50 - 1.30 [place] Globulin gm/dL [facility] LABOR[facility] M1 Band None None [place] Detected Detected [facility] LABORATORY Specimen Anatomical Collection Method Collection Time Receive d Time (Source) Location / / Volume Laterality Blood specimen 10/28/2019 2:05 PM 020 2:20 (specimen) EDT PM EDT Resulting Agency Comment Spec In Lab Kemi Garcia MD CHEMISTRY ORDERABLES Performing Organization Address City/State/ZIP Code Phon e Number [place] [address] Immunophenotyping Flow Cytometry (10/28/2019 2:05 PM EDT) Component Value Ref Test Analysis Performed At Patholo gist Range Method Time Signature Immunophenotyping See [place] Flow Comment [facility] LABOR[facility]ORY Comment: When completed by the Pathologist, the F low Cytometry Report ([id number]) will display under the Pathology Result s section within eDH. Specimen Anatomical Collection Method Collection Time Receive d Time (Source) Location / / Volume Laterality Specimen of 10/28/2019 2:05 PM 0 2:20 unknown material EDT PM EDT (specimen) Resulting Agency Comment Spec In Lab Kemi Garcia MD HEMATOLOGY ORDERABLES Performing Organization Address City/[facility]/ZIP [place] [address] Lactate Dehydrogenase (10/28/2019 2:05 PM EDT) P athologist Signature LDH 143 110 - 220 [facility] unit/L [facility] LABORATORY Specimen Anatomical Collection Method Collection Time Receive d Time (Source) Location / / Volume Laterality Blood specimen 10/28/2019 2:05 PM 020 2:20 (specimen) EDT PM EDT Resulting Agency Comment Spec In Lab Kemi Garcia MD CHEMISTRY ORDERABLES Performing Organization Address City/[facility]/ZIP [place] [address] documented in this encounter Visit Diagnoses Diagnosis Leukopenia, unspecified type Thrombocytopenia Thrombocytopenia, unspecified documented in this encounter Care Teams Network Solutions Architect Relationship Specialty Start Date End Date Dung Silver DO PCP - General 10/03/[address] [place] [address] documented as of this encounter
--- OUTSIDE RECORDS SUMMARY | 2021-11-15 00:50 | XMS_ITS | Encounter Summary ---
:1945 Author Organization [facility] [place] [address] Care Team Providers Name Role Phone Nadeem Dung MIMS Primary Care Provider Encounter Details Date Type Department Care Team Description 09/19/2020 Hospital Encounter Hematology and Hematur ia, unspecified type; [place] [address] Social History Tobacco Use Types Packs/Day Years [...] Name Priority Date/Time Associated Diagnosis Comme nts URINALYSIS Routine 09/19/2020 9:52 Results for this MICROSCOPIC EXAM AM EDT procedure a re in the results section. URINALYSIS WITH Routine 09/19/2020 9:52 Hematuria, unspecified Results for this REFLEX CULTURE AM EDT type procedure are in the results section. HEMOGRAM Routine 09/19/2020 9:28 Thrombocytopenia Results for this AM EDT procedure are i n the results section. DIFFERENTIAL, Routine 09/19/2020 9:28 Thrombocytopenia Results for this AUTOMATED AM EDT procedure are i n the results section. HC CBC,PLT & AUTO Routine 09/19/2020 9:28 Thrombocytopenia DIFF AM EDT documented in this encounter Results Urinalysis Microscopic Exam (09/19/2020 9:52 AM EDT) athologist Signature RBC UA 0 0 - 3 /HPF [facility] WBC UA 0 0 - 3 /HPF [facility] Specimen Anatomical Collection Method Collection Time Receive d Time (Source) Location / / Volume Laterality Clean Catch 09/19/2020 9:52 AM Urine EDT 10:17 AM EDT Resulting Agency Comment Spec In Lab Kemi Garcia MD URINE ORDERABLES Performing Organization Address City/State/[place] [address] (ABNORMAL) Urinalysis with reflex Culture (09/19/2020 9:52 AM EDT) Patholo gist Method Time Signature Glucose UA Negative Negative [facility] Protein UA Negative Negative [facility] mg/dL [facility] Bilirubin UA Negative Negative [facility] mg/dL [facility] Comment: Clinical correlation required for positi ve Urine Bilirubin results as false positive may occur with some drugs and d rug related products. If a false positive is suspected a serum total bili rodriguez should be considered if clinically indicated. Urobilinogen UA Normal Normal mg/dL [facility] pH UA 6.5 5.0 - 8.0 [facility] Blood UA Trace (A) Negative mg/dL [facility] Ketones UA Negative Negative mg/dL [facility] Nitrite UA Negative Negative [facility] Leukocytes UA Negative Negative [facility] Appearance UA Clear Clear [facility] Spec [place] UA 1.007 1.005 - 1.030 [facility] Color UA Yellow Yellow [facility] Culture Reflexed No [facility] Specimen Anatomical Collection Method Collection Time Receive d Time (Source) Location / / Volume Laterality Clean Catch 09/19/2020 9:52 AM Urine EDT 10:17 AM EDT Resulting Agency Comment Spec In Lab Kemi Garcia MD URINE ORDERABLES Performing Organization Address City/State/[place] [address] [facility] [address] Differential, Automated (09/19/2020 9:28 AM EDT) P athologist Signature Neutrophils % 57.8 % [facility] Neutr Abs (ANC) 2.94 1.70 - [facility] 6.10 [facility] x10(3)[facility] LABORATORY Lymphocytes % 30.7 % [facility] Lymphocytes Abs 1.6 0.9 - 3.2 [facility] x10(3)/[facility] Monocytes % 8.1 % [facility] Monocyte Abs 0.4 0.3 - 0.9 [facility] x10(3)/[facility]OR[facility]ORY Eosinophils % 2.4 % [facility] Eosinophils Abs 0.1 0.0 - 0.4 [facility] x10(3)/[facility]ORATORY Basophils % 0.6 % [facility] Basophils Abs 0.0 0.0 - 0.1 [facility] x10(3)/[facility] LABORATORY Immature Gran % 0.40 % [facility] Comment: Immature granulocytes(IG's)percentage an d absolute count will include metamyelocytes, myelocytes, and promyelo cytes. Blood smears from CBCs yielding IG's will be scanned manually for concor dance. If this scan disagrees with the automated IG or if promyelocytes are not ed, a manual differential will be performed. Edna Gran Abs 0.02 0.00 - 0.04 x10(3)/[facility] Specimen Anatomical Collection Method Collection Time Receive d Time (Source) Location / / Volume Laterality Blood 09/19/2020 9:28 AM 9:41 EDT AM EDT Resulting Agency Comment Spec In Lab Kemi Garcia MD HEMATOLOGY ORDERABLES Performing Organization Address City/State/ZIP Code Phon e Number [place] [id number] (ABNORMAL) Hemogram (09/19/2020 9:28 AM EDT) P athologist Signature WBC 5.1 4.0 - 9.5 [facility] x10(3)/[facility] LABORATORY RBC 5.12 4.58 - [facility] 5.54 [facility] x10(6)/[facility]ORATORY Hemoglobin 15.9 13.7 - [facility] 16.5 gm/dL [facility] Hematocrit 45.8 40.5 - [facility] 48.5 % [facility] MCV 89.5 82.9 - [facility] 93.1 [facility]ORATORY MCH 31.1 27.5 - [facility] 32.1 pg [facility] MCHC 34.7 32.0 - [facility] 35.7 gm/dL [facility] Platelets 108 (L) 145 - 357 [facility] x10(3)/[facility] LABORATORY RDWSD 41.1 36.0 - [facility] 45.0 [facility] LABORATORY RDWCV 12.5 11.4 - [facility] 13.8 % [facility] MPV 10.1 7.6 - 12.9 [facility] LABORATORY nRBC % Auto 0.0 % [facility] nRBC Abs Auto 0.000 0.000 - [facility] 0.000 [facility] x10(3)/[facility] LABORATORY Specimen Anatomical Collection Method Collection Time Receive d Time (Source) Location / / Volume Laterality Blood 09/19/2020 9:28 AM 9:41 EDT AM EDT Resulting Agency Comment Spec In Lab Kemi Garcia MD HEMATOLOGY ORDERABLES Performing Organization Address City/State/[place] [address] documented in this encounter Visit Diagnoses Diagnosis Hematuria, unspecified type Thrombocytopenia Thrombocytopenia, unspecified documented in this encounter Care Teams Immigration Patrol Inspector Relationship Specialty Start Date End Date Dung Silver DO PCP - General 10/03/[address] [place] [address] documented as of this encounter
--- OUTSIDE RECORDS SUMMARY | 2021-11-15 00:50 | XMS_ITS | Encounter Summary ---
:1945 Author Organization [facility] [place] [address] Care Team Providers Name Role Phone Dung Silver DO Primary Care Provider Encounter Details Date Type Department Care Team Description 01/11/2020 Telephone Hematology and Oncol [place]gy at [facility] [place] [address] Social History Tobacco Use Types Packs/Day [...] this encounter Miscellaneous Notes Telephone Encounter - Angélica Ferro RN - 01/11/2020 1:52 PM EDT RN called patient to let him know that Dr. Garcia says that his platelets are stable at 119, and that he should follow up with his PCP in 3-4 months with another CBC. Patient expressed understanding of the plan. Encouraged patient to call the office with any questions or concerns. documented in this encounter Plan of Treatment Not on filedocumented as of this encounter Visit Diagnoses Not on filedocumented in this encounter Care Teams Support Worker Relationship Specialty Start Date End Date Dung Silver DO PCP - General 10/03/[address] [place] [address] documented as of this encounter
--- OUTSIDE RECORDS SUMMARY | 2021-11-15 00:50 | XMS_ITS | Encounter Summary ---
:1945 Author Organization [facility] [place] [address] Care Team Providers Name Role Phone Dung Silver Primary Care Provider Encounter Details Date Type Department Care Team Description 10/28/2019 Hospital Encounter Hematology and Leukope anthony, unspecified type; Oncology at [facility] [place] [id number] Social History Tobacco Use Types Packs/Day Years Used Date Never Smoker Smokeless Tobacco: Never Used Sex Assigned at Date Recorded Not on file documented as of this encounter Medications at Time of Discharge Medication Sig Dispensed Refills Start Date End Date hydroCHLOROthiazide Take 12.5 mg by 0 10/10/2019 (MICROZIDE) 12.5 mg Capsule mouth daily. losartan (COZAAR) 100 mg Take 100 mg by 0 020 Tablet mouth daily. rosuvastatin (Crestor) 10 mg Take 40 mg by 0 09/13 Tablet mouth daily. Up to 40mg pravastatin (PRAVACHOL) 40 mg Take 40 mg by 0 11/22/2019 Tablet mouth daily. atorvastatin (LIPITOR) 10 mg 0 006 11/22/2019 tablet documented as of this encounter Plan of Treatment Not on filedocumented as of this encounter Procedures Procedure Name Priority Date/Time Associated Comments Diagnosis SMEAR REVIEW REPORT Routine 10/28/2019 2:33 Resul ts for this PM EDT procedure are i n the results section. IMMUNOGLOBULIN FREE LIGHT Routine 10/28/2019 2:05 Leukopenia, Results for this CHAINS, SERUM PM EDT unspecified type procedure are in Thrombocytopenia the results section. IMMUNOPHENOTYPING FLOW Routine 10/28/2019 2:05 Leukopenia, Re sults for this CYTOMETRY PM EDT unspecified type procedure are in Thrombocytopenia the results section. PERIPHERAL SMEAR REVIEW Routine 10/28/2019 2:05 Leukopenia, R esults for this PM EDT unspecified type procedure are in Thrombocytopenia the results section. HC IGG, SERUM Routine 10/28/2019 2:05 Leukopenia, Results for this PM EDT unspecified type procedure are in Thrombocytopenia the results section. SCAN, PERIPHERAL BLOOD Routine 10/28/2019 2:05 Re sults for this PM EDT procedure are i n the results section. HEMOGRAM Routine 10/28/2019 2:05 Leukopenia, Results for this PM EDT unspecified type procedure are in Thrombocytopenia the results section. DIFFERENTIAL, AUTOMATED Routine 10/28/2019 2:05 Leukopenia, R esults for this PM EDT unspecified type procedure are in Thrombocytopenia the results section. HC PCH METHYLMALONIC ACID Routine 10/28/2019 2:05 Leukopenia, Results for this PM EDT unspecified type procedure are in Thrombocytopenia the results section. PLATELET COUNT Routine 10/28/2019 2:05 Leukopenia, Results fo r this PM EDT unspecified type procedure are in Thrombocytopenia the results section. HC CBC,PLT & AUTO DIFF Routine 10/28/2019 2:05 Leukopenia, PM EDT unspecified type Thrombocytopenia HC VENIPUNCTURE Routine 10/28/2019 2:05 Leukopenia, Results f or this PM EDT unspecified type procedure are in Thrombocytopenia the results section. HC LACTIC DEHYDROGENASE Routine 10/28/2019 2:05 Leukopenia, R esults for this PM EDT unspecified type procedure are in Thrombocytopenia the results section. HC FOLATE, SERUM Routine 10/28/2019 2:05 Leukopenia, Results for this PM EDT unspecified type procedure are in Thrombocytopenia the results section. HC VITAMIN B12 SERUM Routine 10/28/2019 2:05 Leukopenia, Resu lts for this PM EDT unspecified type procedure are in Thrombocytopenia the results section. documented in this encounter Results Smear Review Report (10/28/2019 2:33 PM EDT) Component Value Ref Test Analysis Performed At [facility] Method Time Signature Smear Review [id number] ? Location: [address] [place] [address] Tate AMADOR The signing pathologist has (i) examined the relevant preparation(s) for the [facility] specimen(s) and (ii) rendered or confirmed the diagnosis(es) . HOSPITAL LABORATORY . ? ear Review DIAGNOSIS Peripheral blood, smear review: - Mild thrombocytopenia, otherwise normal CBC and peripheral blood ??morphology (see Discussion). Electronically signed by: ??Antonia Joe MD Verified: ??10/28/2019 ?Hematopathologist Performed at: ??-[facility] Dept. of Pathology, [place], [place] DISCUSSION Flow cytometry immunophenoty pe analysis was performed concurrently (see separate report) and identified no i mmunophenotypically abnormal T-cell or monoclonal B- cell populations and no incr ease in blasts. ?The etiology of mild thrombocytopenia is not evident from review of this peripheral blood smear . In light of the isolated nature of thromboc ytopenia without abnormalities in other cell lines and without morphologic feature s of a microangiopathic process, leading diagnostic considerations could includ e an immune-mediated destructive process, nutritional deficiencies, toxic exposur es (e.g., alcohol), liver disease, acute or chronic infection (elda viral) or an acute or chronic inflammatory process. The findings on this peripheral blood smear do not s uggest a primary bone marrow disorder. Correlation with clinical a nd laboratory findings may provide additional diagnostic clarity and a bone marrow e xamination may be prudent if thrombocytopenia worsens or other CBC abnormalities develop. ADDITIONAL STUDIES The white blood cell count is ?? 4.98K/uL. The p redominating cells are mature neutrophils with normal mor phology, and there is no absolute neutropenia (ANC = 3.15K/uL). Occasional atypi donaldo lymphocytes are present but no frankly abnormal forms are seen. No anemia is evid ent (Hgb ?? 15.6 g/dL ; MCV 91.0 fL), and RBC morphology is normal. There is no incr ease in schistocytes or spherocytes, and no rouleaux formation is noted. Platele ts are slightly decreased in number ( ?107K/uL) but exhibit normal morphologic features . No blasts or abnormal circulating cell populations are appreciated. Neutrophils/bands 63%, Lymph ocytes 26%, Monocytes 8%, Eosinophils 1%, Basophils 1%, Immature granulocytes 0%, Erythroid precursors 0/100 WBC. CLINICAL INFORMATION 74 yo man with cytopenias an d lymphadenopathy. ?Hematopathologist review of CBC and peripheral blood smear requested for evaluation. ?Magan w Cytometry DIAGNOSIS Peripheral blood, flow cytometry: 1. No immunophenotypically abnormal T-cell or monoclonal B-c ell population ?? identified. 2. No increased blast population present (see Discussion). Electronically signed by: ??Tatyana COATES, Antonia Avila Verified: ??10/28/2019 ?Hematopathologist Performed at: ??-[facility] Dept. of Pathology, [place], [place] . DISCUSSION The majority of lymphocytes in this 68 specimen are CD3+ T-cells (17% of lymphocytes; _% of total cells) with a m ixture of mature CD4+ and CD8+ forms (CD4:CD8 ratio approximately 6.4) without aberrant loss or alt ered expression of yeboah T-cell antigens. CD3-/CD56+ NK sung ls constitute 21% of lymphocytes (5% of total cells). CD19+ B-cells account for 1 0% of lymphocytes (3% of total cells) and express surface light chains in a polytypic pattern (kappa:lambda approximately 2.2), thus there is no jack immunophenotypi c evidence for involvement of the peripheral blood by a monoclonal B-cell lymphop roliferative neoplasm. No increased blast population is identified by CD45/right an gle light scatter gating, thus there is no evidence for acute leukemia. These immun ophenotypic findings support the morphologic impression (see separate report). Flow analysis is an ancillar y study. A definite diagnosis requires correlation with the morphologic features of this process and if necessary, correlation with other ancillary studies like immu nohistochemistry, enzyme cytochemistry and/or cyto/ molecular genetics. This test was developed and its performance ten acteristics determined by the Clinical Flow Cytometry Lab oratory at [facility]. It has not been cleared or approve d by the U.S. Food and Drug Administration. ??The FDA has determined that such cleara nce or approval is not necessary. ??This test is used for clinical purposes. ??It moni uld not be regarded as investigational or for research. This laboratory is certifie d under the Clinical Laboratory Improvement Act of 1988 (CLIA) as qualified to perform high complexity clinic al laboratory testing. SPECIMEN PROCESSING [id number] Cells for immunophenotypic a nalysis were derived from blood. CD45 vs side scatter gating was utilized to identify a lymphoid analysis region that comprises approximately 25% of all cells. The following markers were a ssessed: CD2, CD3, CD4, CD5, CD7, CD8, CD10, CD19, CD45, CD56, kappa light chain, and lambda light chain. CLINICAL INFORMATION 74 yo man with cytopenias, lymphadenopathy. Lymphoma panel r equested. Specimen (Source) Anatomical Collection Method Collection Time Re ceived Time Location / / Volume Laterality 10/28/2019 2:33 PM EDT Kemi Garcia MD PATHOLOGY/CYTOLOGY ORDERABLE S Performing Organization Address City/[facility]/ZIP Code Phon e Number [address] Scan, Peripheral Blood (10/28/2019 2:05 PM EDT) Patholo gist Method Time Signature Plat Estimate Decreased [facility] RBC Morphology Normal [facility] Specimen Anatomical Collection Method Collection Time Receive d Time (Source) Location / / Volume Laterality Blood specimen 10/28/2019 2:05 PM 020 2:20 (specimen) EDT PM EDT Resulting Agency Comment Spec In Lab Kemi Garcia MD HEMATOLOGY ORDERABLES Performing Organization Address City/[facility]/ZIP Code Phon e Number [address] Differential, Automated (10/28/2019 2:05 PM EDT) P athologist Signature Neutrophils % 63.3 % [facility] Neutr Abs (ANC) 3.15 1.70 - [facility] 6.10 [facility] x10(3)/[facility] LABORATORY Lymphocytes % 26.5 % [facility] Lymphocytes Abs 1.3 0.9 - 3.2 [facility] x10(3)/[facility] LABORATORY Monocytes % 7.8 % [facility] Monocyte Abs 0.4 0.3 - 0.9 [facility] x10(3)/[facility] LABORATORY Eosinophils % 1.4 % [facility] Eosinophils Abs 0.1 0.0 - 0.4 [facility] x10(3)/[facility] LABORATORY Basophils % 0.6 % [facility] Basophils Abs 0.0 0.0 - 0.1 [facility] x10(3)/[facility] LABORATORY Immature Gran % 0.40 % [facility] Comment: Immature granulocytes(IG's)percentage an d absolute count will include metamyelocytes, myelocytes, and promyelo cytes. Blood smears from CBCs yielding IG's will be scanned manually for concor dance. If this scan disagrees with the automated IG or if promyelocytes are not ed, a manual differential will be performed. Edna Gran Abs 0.02 0.00 - 0.04 x10(3)/[facility] LABORATORY Specimen Anatomical Collection Method Collection Time Receive d Time (Source) Location / / Volume Laterality Blood specimen 10/28/2019 2:05 PM 020 2:20 (specimen) EDT PM EDT Resulting Agency Comment Spec In Lab Kemi Garcia MD HEMATOLOGY ORDERABLES Performing Organization Address City/State/ZIP [place] [address] (ABNORMAL) Hemogram (10/28/2019 2:05 PM EDT) P athologist Signature WBC 5.0 4.0 - 9.5 [facility] x10(3)/[facility] LABORATORY RBC 4.99 4.58 - [facility] 5.54 [facility] x10(6)/[facility] LABORATORY Hemoglobin 15.6 13.7 - [facility] 16.5 gm/dL [facility] Hematocrit 45.4 40.5 - [place] [place] 48.5 % [facility] MCV 91.0 82.9 - [place] 93.1 [facility] LABORATORY MCH 31.3 27.5 - [place] 32.1 pg [facility] MCHC 34.4 32.0 - [place] [place] 35.7 gm/dL [facility] Platelets 107 (L) 145 - 357 [facility] x10(3)/[facility] LABORATORY RDWSD 40.4 36.0 - [place] 45.0 [facility] LABORATORY RDWCV 12.1 11.4 - [place] [place] 13.8 % [facility] MPV 10.1 7.6 - 12.9 [facility] LABORATORY nRBC % Auto 0.0 % [facility] nRBC Abs Auto 0.000 0.000 - [place] 0.000 [facility] x10(3)/[facility] LABORATORY Specimen Anatomical Collection Method Collection Time Receive d Time (Source) Location / / Volume Laterality Blood specimen 10/28/2019 2:05 PM 020 2:20 (specimen) EDT PM EDT Resulting Agency Comment Spec In Lab Kemi Garcia MD HEMATOLOGY ORDERABLES Performing Organization Address City/State/ZIP Code Phon e Number [address] Immunophenotyping Flow Cytometry (10/28/2019 2:05 PM EDT) Component Value Ref Test Analysis Performed At [facility] gist Range Method Time Signature Immunophenotyping See [place] Flow Comment [facility] LAB[facility]ORY Comment: When completed by the Pathologist, the F low Cytometry Report ([id number]) will display under the Pathology Result s section within eD. Specimen Anatomical Collection Method Collection Time Receive d Time (Source) Location / / Volume Laterality Specimen of 10/28/2019 2:05 PM 0 2:20 unknown material EDT PM EDT (specimen) Resulting Agency Comment Spec In Lab Kemi Garcia MD HEMATOLOGY ORDERABLES Performing Organization Address City/[facility]/ZIP Code Phon e Number [address] Lactate Dehydrogenase (10/28/2019 2:05 PM EDT) athologist Signature LDH 143 110 - 220 [facility] unit/L [facility] Specimen Anatomical Collection Method Collection Time Receive d Time (Source) Location / / Volume Laterality Blood specimen 10/28/2019 2:05 PM 020 2:20 (specimen) EDT PM EDT Resulting Agency Comment Spec In Lab Kemi Garcia MD CHEMISTRY ORDERABLES Performing Organization Address City/State/ZIP [place] [address] (ABNORMAL) Platelet count (10/28/2019 2:05 PM EDT) athologist Signature Platelets 107 (L) 145 - 357 [facility] x10(3)/[facility] LABORATORY Plat Immature 2.3 0.0 - 7.4 [facility] % % [facility] Comment: Limitation of the Immature Platelet Frac tion (IPF)-May be less reliable when the platelet count is less than 32e185/u L due to statistical imprecision. The IPF [...] in a decreased state of production. References: [employer] The Clinical Value of the Immature Platelet Fraction (IPF) in Cell Recovery Document Number [id number] 08/2010 [employer] The Role of the Imm ature Platelet Fraction (IPF) in the Differential Diagnosis of Thrombocytopen ia, Document [id number] V05/02/26 P014 Specimen Anatomical Collection Method Collection Time Receive d Time (Source) Location / / Volume Laterality Blood specimen 10/28/2019 2:05 PM 020 2:20 (specimen) EDT PM EDT Resulting Agency Comment Spec In Lab Kemi Garcia MD HEMATOLOGY ORDERABLES Performing Organization Address City/[facility]/ZIP Code Phon e Number [address] Peripheral Smear Review (10/28/2019 2:05 PM EDT) Patholo gist Method Time Signature Periph Smear See Comment [facility] LABORATORY Comment: When completed by the Pathologist, repor t [id number] will display under Hematopathology Reports. Specimen Anatomical Collection Method Collection Time Receive d Time (Source) Location / / Volume Laterality Blood specimen 10/28/2019 2:05 PM 020 2:20 (specimen) EDT PM EDT Resulting Agency Comment Spec In Lab Kemi Garcia MD HEMATOLOGY ORDERABLES Performing Organization Address City/[facility]/ZIP Code [place] [address] Folate, serum (10/28/2019 2:05 PM EDT) P athologist Signature Folate Lvl >20.0 4.8 - 24.2 [facility] [place] ng/mL [facility] Specimen Anatomical Collection Method Collection Time Receive d Time (Source) Location / / Volume Laterality Blood specimen 10/28/2019 2:05 PM 020 2:20 (specimen) EDT PM EDT Resulting Agency Comment Spec In Lab Kemi Garcia MD CHEMISTRY ORDERABLES Performing Organization Address City/[facility]/ZIP Code Phon e Number [address] Vitamin B12 (10/28/2019 2:05 PM EDT) P athologist Signature Vitamin B-12 566 232 - 1,245 [facility] [place] pg/mL [facility] Specimen Anatomical Collection Method Collection Time Receive d Time (Source) Location / / Volume Laterality Blood specimen 10/28/2019 2:05 PM 020 2:20 (specimen) EDT PM EDT Resulting Agency Comment Spec In Lab Kemi Garcia MD CHEMISTRY ORDERABLES Performing Organization Address City/[facility]/ZIP Code Phon e Number [address] Methylmalonic acid, serum (10/28/2019 2:05 PM EDT) Patholo gist Method Time Signature Methylmalonic Acid 0.16 <=0.40 [facility] nmol/mL [facility] Comment: ADDITIONAL INFORMATIO N This test was developed and its performa nce characteristics determined by [facility] in a manner co nsistent with CLIA requirements. This test has not been anthony ared or approved by the U.S. Food and Drug Administration. Test Performed by: [place] [address] Donor Floor Technician: Tam Wood M.D. Ph. D.; CLIA# [id number] Specimen Anatomical Collection Method Collection Time Receive d Time (Source) Location / / Volume Laterality Blood specimen 10/28/2019 2:05 PM 020 4:14 (specimen) EDT PM EDT Resulting Agency Comment Spec In Lab Kemi Garcia MD CHEMISTRY ORDERABLES Performing Organization Address City/[facility]/ZIP Code Phon e Number [address] Immunoglobulins, Quantitative (10/28/2019 2:05 PM EDT) P athologist Signature IgG 1,037 700 - 1,600 [facility] mg/dL [facility] Comment: Pediatric Reference Intervals obtained f rom the Caliper Reference Interval project. http://www.[employer]ca/caliperp roject/index.html IgA 201 70 - 400 mg/dL [facility] IgM 84 40 - 230 mg/dL [facility] Specimen Anatomical Collection Method Collection Time Receive d Time (Source) Location / / Volume Laterality Blood specimen 10/28/2019 2:05 PM 020 2:20 (specimen) EDT PM EDT Resulting Agency Comment Spec In Lab Kemi Garcia MD CHEMISTRY ORDERABLES Performing Organization Address City/[facility]/ZIP Code Phon e Number [address] Free Light Chains, Serum (10/28/2019 2:05 PM EDT) P athologist Signature [place] Free 1.36 0.72 - [facility] Light Chain 2.75 mg/dL [facility] Lambda Free 0.75 0.57 - [facility] Light Chain 2.15 mg/dL [facility] Lyon Lambda 1.8133 0.4000 - [facility] FLC Ratio 2.5800 [facility] Comment: Please be advised that [...] Garcia MD CHEMISTRY ORDERABLES Performing Organization Address City/[facility] Phon e Number [address] Protein Electrophoresis, serum (10/28/2019 2:05 PM EDT) Patholo gist Method Time Signature Total Prot 6.3 6.1 - 8.0 [place] Elec gm/dL [facility] LAB[facility]ORY Albumin Elect 4.37 3.60 - 6.00 [place] gm/dL [facility] LAB[facility]ORY Alpha1-Globul 0.15 0.10 - 0.30 [place] in gm/dL [facility] LAB[facility]ORY Alpha2-Globul 0.52 0.40 - 0.90 [place] in gm/dL [facility] Beta Globulin 0.54 0.50 - 1.00 [place] gm/dL [facility] Gamma 0.72 0.50 - 1.30 [place] Globulin gm/dL [facility] LAB[facility] M1 Band None None [facility] Detected Detected [facility] LAB[facility]ORY Specimen Anatomical Collection Method Collection Time Receive d Time (Source) Location / / Volume Laterality Blood specimen 10/28/2019 2:05 PM 020 2:20 (specimen) EDT PM EDT Resulting Agency Comment Spec In Lab Kemi Garcia MD CHEMISTRY ORDERABLES Performing Organization Address City/State/ZIP Code Phon e Number [place] [phone] documented in this encounter Visit Diagnoses Diagnosis Leukopenia, unspecified type Thrombocytopenia Thrombocytopenia, unspecified documented in this encounter Care Teams Industrial Robotics Mechanic Relationship Specialty Start Date End Date Dung Silver DO PCP - General 10/03/[address] [place] [address] documented as of this encounter
--- OUTSIDE RECORDS SUMMARY | 2021-11-15 00:50 | XMS_ITS | Encounter Summary ---
:1945 Author Organization [facility] [place] [address] Care Team Providers Name Role Phone Dung Silver DO Primary Care Provider Encounter Details Date Type Department Care Team Description 09/29/2011 Orders Only Vascular Surgery at Dung Silver El evated lipids [facility] DO (Primary Dx) [address] [id number] [phone] (Wo rk) Social History Tobacco Use Types Packs/Day Years Used Date Never Assessed Sex Assigned at Date Recorded Not on file documented as of this encounter Plan of Treatment Not on filedocumented as of this encounter Results Cerebrovascular Duplex, Bilateral (10/03/2011 12:33 PM EDT) Component Value Ref Test Analysis Performed At [facility] Range Method Time Signature VB Text VASCUBASE Report Department: Vascular Surgery Lab Patient: [id number] (ALEJO CHAWLA) CPT Code: 69740 ICD-9: 401.9 Referring Physician: DUNG SILVER Indication: [...] are based on comparisons performe d at [facility] between noninvasive carotid artery d uplex data and arteriographic evaluation of the same patients from [phone]. Q / A Sens. Spec. PPV NPV [...] this encounter Visit Diagnoses Diagnosis Elevated lipids - Primary Other and unspecified hyperlipidemia documented in this encounter Care Teams Typists Supervisor Relationship Specialty Start Date End Date Dung Silver DO PCP - General 10/03/[address] [place] [address] documented as of this encounter
--- OUTSIDE RECORDS SUMMARY | 2021-11-15 00:50 | XMS_ITS | Encounter Summary ---
:1945 Author Organization [facility] Address [address] [place] [address] Care Team Providers Name Role Phone Dung Silver Primary Care Provider Reason for Visit Reason Comments Follow-up Encounter Details Date Type Department Care Team Description 09/19/2020 Office Visit Hematology and [place], Thrombocytop enia; [place] [facility] [place] Kemi Hematuria, unspecified type [facility] [address] [place] HEMATOLOGY/ONCOLOG [id number] Y DEPT. [phone] [place], [place] [address] Social History Tobacco Use Types [...] Sign Reading Time Taken Comments Blood Pressure 141/79 09/19/2020 10:20 AM EDT Pulse 45 09/19/2020 10:20 AM EDT Temperature 36.2 ??C (97.2 ??F) 09/19/2020 10:20 AM EDT Respiratory Rate 17 09/19/2020 10:20 AM EDT Oxygen Saturation 98% 09/19/2020 10:20 AM EDT Inhaled Oxygen Concentration - - Weight 86.5 kg (190 lb 9.6 oz) 09/19/2020 10:20 AM EDT Height 180.5 cm (5' 11.06) 09/19/2020 10:20 AM EDT Body Mass Index 26.54 09/19/2020 10:20 AM EDT documented in this encounter Progress Notes Kemi Garcia MD - 09/19/2020 10:30 AM EDT Images from the original note were not included. HEMATOLOGY OFFICE VISIT NOTE DATE OF VISIT : 09/19/20 REASON FOR VISIT: F/up for thrombocytopenia. HISTORY OF PRESENT ILLNESS Hadley Chawla is a 75 y.o. male with PMH of hypertension, hyperlipidemia presenting for evaluation of leukopenia and thrombocytopenia. Presentation: Routine CBC at PCP's office showed abnormal CBC. He didn't have CBC checked at [facility] in the past few years. This is the 1st time he is aware of abnormal CBC. Labs from referring MD: ??? CBC on 09/28/2019: WBC 3.86, diff not available, Hgb 16.2, MCV 90.6, platelet count 122k ??? 10/11/2019: Platelet count 112K ??? Creatinine 1.21, GFR 59 W/up : 11/22/2019 : BONE MARROW ?1. ??Variably hypercellular marrow (average ~70%) showing complete multilineage ? hematopoiesis with a relative erythroid hyperplasia ?2. ??Iron stores are subjectively increased per iron stain ?3. ??Peripheral smear with mild thrombocytopenia ?4. ??Normal male karyotype. Myeloid gene panel with no clonal aberrancies. INTERIM VISIT: Mr. Hadley Chawla is here for f/up. He relates that he has few active health issues going on since he was in [place], but didn't have chance to have them fully evaluated as he came back to [place]. - He has low heart rate lately. He was referred to technical publications manager in [place],but hasn't had chance to see them. Denies any lightheadedness, chest pain, SOB etc. - Has persistent hematuria since May. He as referred to urology in [place], but couldn't see them as hehas to come back to [place]. Denies any flank pain; - No other abnormal bleeding. - No fevers or night sweats; wt is stable - Received COVID 19 vaccine. - He is asymptomatic both from cardiac and renal perspective. - No active cardiac/resp/GI issues; Rest of the ROS: Negative PROBLEM LIST There are no problems to display for this patient. PAST SURGICAL Hx: Past Surgical History: Procedure Laterality Date ? ? PRO DIAGNOSTIC BONE MARROW BIOPSIES & ASPIRATIONS N/A 11/22/2019 ([facility]) BONE MARROW BIOPSY AND ASPIRATION; DIAGNOSTIC performed by Kemi Garcia MD at [facility] OSC MEDICATIONS ??? multivitamin Capsule ??? hydroCHLOROthiazide (MICROZIDE) 12.5 mg Capsule ??? losartan (COZAAR) 100 mg Tablet ??? rosuvastatin (Crestor) 10 mg Tablet ALLERGIES/ADR No Known Allergies PERSONAL and SOCIAL HISTORY ?? Lives in [place], [place] from August to Dec, but, mainly lives in [place]: ?? Work history: Retired. 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 ?? ETOH: rare ?? Smoking: No ?? HIPPA Contact Permission: OK to leave voice mail on phone. FAMILY HISTORY No family history on file. Has one brother and one sister. Brother recently from liver cancer. . Has one son and one daughter. No other cancers or blood disorders in the family PHYSICAL EXAM VITAL SIGNS: Blood pressure 141/79, pulse (!) 45, temperature 36.2 ??C (97.2 ??F), temperature source Temporal, resp. rate 17, height 180.5 cm (5' 11.06), weight 86.5 kg (190 lb 9.6 oz), SpO2 98 %. GENERAL: Hadley Chawla is a well-appearing 74 [...] tenderness. SKIN: No rashes, bruises or petechiae. NEUROLOGICAL: Alert and oriented to person, place and time; No focal neurological deficits; EXT: No peripheral edema. PSYCHIATRIC: normal affect and mood LABORATORY Recent Results (from the past 72 hour(s)) Hemogram Result Value Ref Range WBC 5.1 4.0 - 9.5 x10(3)/mcL RBC 5.12 4.58 - 5.54 x10(6)/mcL Hemoglobin 15.9 13.7 - 16.5 gm/dL Hematocrit 45.8 40.5 - 48.5 % MCV 89.5 82.9 - 93.1 fL MCH 31.1 27.5 - 32.1 pg MCHC 34.7 32.0 - 35.7 gm/dL Platelets 108 (L) 145 - 357 x10(3)/mcL RDWSD 41.1 36.0 - 45.0 fL RDWCV 12.5 11.4 - 13.8 % MPV 10.1 7.6 - 12.9 fL nRBC % Auto 0.0 % nRBC Abs Auto 0.000 0.000 - 0.000 x10(3)/mcL Differential, Automated Result Value Ref Range Neutrophils % 57.8 % Neutr Abs (ANC) 2.94 1 - 6 x10(3)/mcL Lymphocytes % 30.7 % Lymphocytes Abs 1.6 0.9 - 3.2 x10(3)/mcL Monocytes % 8.1 % Monocyte Abs 0.4 0.3 - 0.9 x10(3)/mcL Eosinophils % 2.4 % Eosinophils Abs 0.1 0.0 - 0.4 x10(3)/mcL Basophils % 0.6 % Basophils Abs 0.0 0.0 - 0.1 x10(3)/mcL Immature Gran % 0.40 % Edna Gran Abs 0.02 0.00 - 0.04 x10(3)/mcL Urinalysis with reflex Culture Specimen: Clean Catch Urine Result Value Ref Range Glucose UA Negative Negative mg/dL Protein UA Negative Negative mg/dL Bilirubin UA Negative Negative mg/dL Urobilinogen UA Normal Normal mg/dL pH UA 6.5 5.0 - 8.0 Blood UA Trace (A) Negative mg/dL Ketones UA Negative Negative mg/dL Nitrite UA Negative Negative Leukocytes UA Negative Negative mcL Appearance UA Clear Clear Spec Simpson UA 1.007 1.005 - 1.030 Color UA Yellow Yellow Culture Reflexed No Urinalysis Microscopic Exam Result Value Ref Range RBC UA 0 0 - 3 /HPF WBC UA 0 0 - 3 /HPF Non-Wellness Assistant Final Report Result Value Ref Range Non-Wellness Assistant Final Report [id number] Location: The signing pathologist has (i) examined the relevant preparation(s) for the specimen(s) and (ii) rendered or confirmed the diagnosis(es). . Non-Wellness Assistant Final DIAGNOSIS Negative for High Grade Urothelial Carcinoma See discussion. Electronically signed by: Bart Germain MD Verified: 09/20/2020 13:13 Pathologist Performed at: [place] [place], [place], [place] DISCUSSION Urine, voided: Urothelial cells and squamous cells. Reference: Jose F DL, Ara EM, Yimi MARSHI. The [employer] System for Reporting Urinary Cytology. Placer: Dickinson; 2016. CLINICAL INFORMATION Specimen Source : Urine, voided Pertinent Clinical Data and Significant Therapy: Persistent hematuria since May, Clinical Impression : Pt asymptomatic Pertinent Radiologic Findings : (not provided) Gross Description: Receiv ed fresh, approximately 60 mL total volume of clear, yellow fluid. Total Preparation: Liquid-Based Prep 1. RADIOLOGY - None ASSESSMENT & PLANS # Isolated thrombocytopenia -rest of the 2 blood cell lines are normal On the work-up including bone marrow biopsy, cytogenetics was unrevealing. 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 He is doing well from heme perspective. His labs today again show isolated thrombocytopenia which has been stable. I recommend his PCP monitoring his CBC once a year and to notify me if his CBC shows new/significantabnormalities . He does not need further follow-up with me #Persistent microscopic hematuria -we did urine analysis today which again showed trace hematuria. As this has been persistent for the past 3-4 months, I checked for urine cytology and that came back negative for high-grade urothelial carcinoma. He is seeing his PCP later this month. Advised him to discuss this with his PCP and for referral to urology for further evaluation. #Bradycardia -asymptomatic. Advised him to discuss this with PCP for further evaluation I spent ~42 minutes, majority of which is spent [id number] discussing all the above, but also includes time spent in reviewing the labs, coordinating care etc.. Kemi Garcia MD [facility] CC: DO Nadeem Yeh Thomas l documented in this encounter Plan of Treatment Not on filedocumented as of this encounter Procedures Procedure Name Priority Date/Time Associated Comments Diagnosis NON-CONCESSION CASHIER FINAL REPORT Routine 09/19/2020 11:38 Res ults for this AM EDT procedure are i n the results section. CYTOPATHOLOGY Routine 09/19/2020 10:58 Thrombocytopeni a Results for this NON-GYNECOLOGICAL AM EDT Hematuria, procedure are in unspecified type the results section. documented in this encounter Results Non-Wellness Assistant Final Report (09/19/2020 11:38 AM EDT) Component Value Ref Test Analysis Performed At [facility] gist Range Method Time Signature Non-Wellness Assistant Final [id number] ? Location: [address] [place] [address] The signing pathologist has (i) examined the relevant preparation(s) for the [facility]IAL specimen(s) and (ii) rendered or confirmed the diagnosis(es) . HOSPITAL LABORATORY . ? No n-Wellness Assistant Final DIAGNOSIS Negative for High Grade Urothelial Carcinoma See discussion. Electronically signed by: ?Marcellus COATES, Bart Verified: ??09/20/2020 13:13 ??Pathologist Performed at: ??-[facility] [place], [place], [place] DISCUSSION Urine, voided: Urothelial cells and squamous cells. Reference: Jose F DL, ?? Yimi Correia ??DFI. The [employer] System for Reporting Urinary Cytology. Placer: Dickinson; 2016. CLINICAL INFORMATION Specimen Source : Urine, voided Pertinent Clinical Data and Significant Therapy: Persistent hematuria since May, Clinical Impression : Pt asymptomatic Pertinent Radiologic Findings ??: (not provided) Gross Description: Received ??fresh, approximately 60 mL total volu me of ?? clear, yellow fluid. Total Preparation: Liquid-Based Prep 1. Specimen (Source) Anatomical Collection Method Collection Time Re ceived Time Location / / Volume Laterality 09/19/2020 11:38 AM EDT Kemi Garcia MD PATHOLOGY/CYTOLOGY ORDERABLE S Performing Organization Address City/[facility]/[place] [address] Cytopathology Non-Gynecological (09/19/2020 10:58 AM EDT) Specimen Anatomical Collection Method Collection Time Receive d Time (Source) Location / / Volume Laterality AP Specimen 09/19/2020 10:58 09/19/2020 AM EDT 10:58 AM EDT Narrative [facility] - 09/19/2020 10:58 AM EDT Specimen requisition ordered. ??Separate Pathology report to follow Kemi Garcia MD PATHOLOGY/CYTOLOGY ORDERABLE S Performing Organization Address City/[facility] [place] [address] documented in this encounter Visit Diagnoses Diagnosis Thrombocytopenia Thrombocytopenia, unspecified Hematuria, unspecified type documented in this encounter Care Teams Door Slinger Relationship Specialty Start Date End Date Dung Silver DO PCP - General 10/03/[address] [place] [address] [address] [place] [address] documented as of this encounter
--- OUTSIDE RECORDS SUMMARY | 2021-11-15 00:50 | XMS_ITS | Encounter Summary ---
:1945 Author Organization [facility] [place] [address] Care Team Providers Name Role Phone Dung Silver DO Primary Care Provider Encounter Details Date Type Department Care Team Description 11/22/2019 Surgery Outpatient Surgery Jose, ([facility]) BONE MARROW Center Radha Mcmullen MD BIOPSY AND ASPIRATION; [facility] DIAGNOSTIC [facility] HEMATOLOGY/[place] [address] DEPT. [phone] [place], [place] [address] (Wo rk) Social History Tobacco Use Types [...] Sign Reading Time Taken Comments Blood Pressure 153/74 11/22/2019 9:37 AM EDT Pulse 88 11/22/2019 9:37 AM EDT Temperature 36.9 ??C (98.4 ??F) 11/22/2019 9:37 AM EDT Respiratory Rate 18 11/22/2019 9:37 AM EDT Oxygen Saturation 99% 11/22/2019 9:37 AM EDT Inhaled Oxygen Concentration - - Weight 85.3 kg (188 lb) 11/22/2019 9:37 AM EDT Height 180.3 cm (5' 11) 11/22/2019 9:37 AM EDT Body Mass Index 26.22 11/22/2019 9:37 AM EDT documented in this encounter Discharge Instructions Discharge InstructionsDanita Prather RN - 11/22/2019 9:55 AM EDT OUTPATIENT SURGERY POST-OPERATIVE INSTRUCTIONS BONE MARROW BIOPSY SITE 1. You have had a bone marrow aspiration and or/biopsy, which is like having an operation with a tiny, deep incision. 2. Do Not do any strenuous work today, like housework, yard work, sports of any kind or lifting morethan 5 pounds as it may cause your bone marrow site to bleed. 3. To avoid infection, leave the clear plastic dressing on the site for three days. You may shower, bathe, or swim as you wish, provided the clear dressing remains intact, and all sides of the dressingare firmly adhered to the skin. In the unlikely event that a portion or the entire dressing should come off, you may replace it with a conventional cloth band aid. However, you will no longer be able to get the site wet until three days have passed, as a conventional band aid is not waterproof and thesite is no longer a sterile area. 4. It is not unusual for the site to leak a scant amount of blood, so do not be alarmed to see a small collection, or ???puddle?? of blood under the dressing. Wound healing will still occur. 5. If you are uncertain if there is an increase in any leaking from your bone marrow site, roll up atowel, lie down on a firm surface, place the towel directly over the puncture site to apply pressure, and rest there for one half hour. Direct, FIRM thumb pressure applied to the site for 10 minutes works well as an alternative method. Leave the dressing on. 6. Most people do not experience much discomfort after this procedure, but if you do, you should askyour physician what to take. AVOID ASPIRIN PRODUCTS as these interfere with clotting. 7. After three days, remove your dressing and leave it off, so the air can get to the site to finishthe healing process. 8. NOTIFY YOUR DOCTOR FOR: a. Redness b. Heat c. Fever d. Swelling e. Drainage f. Increased pain g. Foul odor (which may not be apparent through the dressing) If you are having problems or have any additional concerns or questions: Between 8am and 5pm - Call the Hematology Clinic at . After 5pm or on a weekend: Call the [facility] printing press operator at andask for the physician investor relations director covering for your doctor. You may eat a regular diet as tolerated. IV site -- slight redness, or tenderness is normal, you can use a warm compress. If tenderness and redness increases or foul drainage occurs, please contact your [facility] [address] ??? [place] [address] ??? [phone] ??? [email or web address] [employer] ??? [facility] ??? [facility] ??? [facility] documented in this encounter Medications at Time of Discharge [...] to 40mg documented as of this encounter Progress Notes Radha Kauffman RN - 11/22/2019 11:30 AM EDT Occlusive drsg applied to site. visualized site. Discharge instructions reviewed and copy sent home with pt & . Radha Kauffman RN - 11/22/2019 10:58 AM EDT Pressure drsg applied by CALENDER ROLL OPERATOR Cleopatra Jefferson RN - 11/10/2019 2:56 PM EDT During this call the patient was questioned regarding travel, fever, cough, SOB or other illness in the last 14 days. Patient also questioned regarding any exposure to a COVID positive person, a personawaiting results from testing or a person in quarantine. Patient denies any positive responses to the above questions for themselves or their escort for the day of procedure. documented in this encounter H&P Notes Chrystal Montero APRN - 11/22/2019 10:36 AM EDT Hadley Chawla is here today for a bone marrow biopsy and aspirate. No changes in H & P since last exam dated 10/28/19/Local anesthesia only as He ate breakfast today . We will proceed with planned procedure. documented in this encounter Procedure Notes Chrystal Montero APRN - 11/22/2019 10:58 AM EDT BONE MARROW BIOPSY AND ASPIRATION PROCEDURE NOTE Bone Marrow Biopsy & Aspiration with local anesthesia only - Unilateral Date/Time of Procedure: 11/22/2019 Proceduralist: Chrystal Montero RN, MS, LEASE ADMINISTRATION ANALYST DIAGNOSIS: mild thrombocytopenia Pre-Procedure: (x) Consent signed and on chart. (x) CBC drawn within 3 days. (x) Medications/Allergies/Problem List reviewed. (x) H & P complete Prior to start of procedure the following is verified in a TIME OUT: (x) Patient identity (x) Planned procedure (x) Safety concerns IV ACCESS: n/a PAIN INTERVENTION: Local only - tolerated well Sterile Condition: Chlorohexidine/betadine was used to sterilize the area. Sterile drapes were used to create a sterile field. Local Anesthesia: 1% buffered Lidocaine 20 cc's. PROCEDURE: A bone marrow biopsy and aspiration was performed on the right posterior iliac crest. Pressure applied to site(s) for at least 20 minutes following the procedure and Tegaderm placed. Estimated Blood Loss: minimal Complications: none POST INTERVENTION CARE & PAIN ASSESSMENT: Per [facility] nurses. Follow-up: Written/Verbal instructions for site care given to patient per [facility] nurses. Follow-up with Physician as instructed. documented in this encounter Plan of Treatment Not on filedocumented as of this encounter Procedures Procedure Name Priority Date/Time Associated Diagnosis Comme nts MYELOID SEQ PANEL Routine 11/22/2019 10:55 AM EDT CHROMO REPORT Routine 11/22/2019 10:55 Results fo r this ACQUIRED AM EDT procedure are i n the results section. BONE MARROW FINAL Routine 11/22/2019 10:55 Result s for this REPORT AM EDT procedure are i n the results section. IRON STAIN, BONE Routine 11/22/2019 10:55 Results for this MARROW AM EDT procedure are i n the results section. BONE MARROW PANEL Routine 11/22/2019 10:55 (MC/CGP/APD) AM EDT ([facility] BONE 11/22/2019 10:50 Thrombocytopenia MARROW BIOPSY AND AM EDT ASPIRATION; DIAGNOSTIC HEMOGRAM Routine 11/22/2019 10:05 Results for this AM EDT procedure are i n the results section. DIFFERENTIAL, Routine 11/22/2019 10:05 Results fo r this AUTOMATED AM EDT procedure are i n the results section. HC CBC,PLT & AUTO Routine 11/22/2019 10:05 DIFF AM EDT ([facility]) BONE Routine 11/22/2019 9:31 AM MARROW BIOPSY AND EDT ASPIRATION; DIAGNOSTIC documented in this encounter Results chromo report acquired (11/22/2019 10:55 AM EDT) Component Value Ref Test Analysis Performed At [facility] Range Method Time Signature Cytogenetics Final Report RADHA Acquired Report MARJORIE TRENTON RIAAustin ? [id number] HOSPITAL LABORATORY Specimen Type: Bone Marrow Specimen Condition: ~4ml with fat and spicules, adequate. Collection Date/Time: 11/22/2019 10:55 Received Date/Time: 11/22/2019 15:22 Indication: ??Thrombocytopenia ---Results--- Apparently normal male karyotype at banding resolution achie prosper. ---Karyotype--- 46,XY[20] ---Preparation--- Culture Type: 24 and 48 hour short term cultures Days in Culture: 2 Banding Method: G-banding Number of cells counted: 31 Number of cells analyzed: 20 Karyograms prepared: 4 Banding Level: 400-450 bands FISH Method: Interphase FISH ---Interpretation--- Cytogenetic analysis of the bone marrow preparation revealed a normal male chromosome complement in all cells examined. No clonal abnor malities were observed. ---Comments--- Correlation with clinical presentation a nd other laboratory Genetic counseling is strongly recommended. ??This result should be correlated with clinical presentation and other laboratory testing results. ---Limitations & Disclaimers--- The routine banded chromosome analysis u tilized in this assay usually does not detect subtle structural abnormalities and submi croscopic aberrations such as microdeletions and microduplications or low level mosaicism. These abnormalities, with the exception of balanced tr anslocations, may be detected by molecular cytogenomic techniques such as chromosomal micr oarray and fluorescence in situ hybridization (FISH). Please consult the laboratory or other healthcare providers for appropriate testing strategy. This test was performed at [facility] Cytogenetics Laboratory in the Department of Pathology. The [facility] Cytogen etics Laboratory is certified under The Clinical Laborator y Improvement Amendments (CLIA? 88) and is accredited by The [employer] [place] [employer] (CAP); as qualified to perform high complexity clinical laboratory testing. 11.30.19 (Electronic Signature) Verified By: Mary Winters Specimen Anatomical Collection Method Collection Time Receive d Time (Source) Location / / Volume Laterality 11/22/2019 10:55 11/22/2019 3:22 AM EDT PM EDT Kemi Garcia MD HEMATOLOGY ORDERABLES Performing Organization Address City/State/Z[place] [address] Bone Marrow Final Report (11/22/2019 10:55 AM EDT) Component Value Ref Test Analysis Performed At [facility] Range Method Time Signature Bone Marrow [id number] ? Location: [facility] Final Report ATHENS The signing pathologist has (i) examined the relevant preparation(s) for the [facility] specimen(s) and (ii) rendered or confirmed the diagnosis(es) . HOSPITAL LABORATORY . ? Bone Marrow Final DIAGNOSIS BONE MARROW (PERIPHERAL SMEAR, ASPIRATE SMEAR, TOUCH PREP, C ORE BIOPSY): ?? 1. ??Variably hypercellu lar marrow (average ~70%) showing complete multilineage ?hematopoiesis with a relative erythroid hyperplasia ?? 2. ??Iron stores are subjectively increased per iron sta in ?? 3. ??Peripheral smear with mild thrombocytopenia ?? 4. ??Genetic studies are pending Electronically signed by: ??Huey Servin MD Verified: ??11/23/2019 ?Hematopathologist Performed at: ??-[facility] Dept. of Pathology, [place], [place] DISCUSSION The mild thrombocytopenia is noted. Micr oscopic findings of dyspoiesis are not identified in this specimen . The immature platelet fraction was not increased (2.3%) on 10/28/2019, thus periphe ral loss not favored. ?Factors which may contribute to suppressed platelet product ion may include medication effect, toxin exposure, or infections. Platelet seques tration may also be a possible consideration. Genetic studies are pending, and my elodysplasia could re-enter the differential if a clonal MDS-related abnormality is identified. PERIPHERAL SMEAR WBC 5.0K/uL, RBC 5.1M/uL, HGB 15.9g/dL, MCV 91.7fL, RDW 12.3 %, PLT 101K/uL The peripheral smear shows n ormochromic normocytic erythrocytes without significant anemia. Anisopoikilocytosis and polychromasia are not increased. The total leukocyte count is normal, and all re lative and absolute leukocyte-subset counts are within reference limits. The neutr ophils are mostly mature and without significant left- shift. Remaining leukocyte m orphology is generally unremarkable. There is a mild thrombocytopenia, but platelet morphology is unremarkable. BONE MARROW ASPIRATE Adequacy: ?Smear/touch preparations adequate, cellula r. G:E ratio: ? 1.1:1 Erythroid: ? Complete maturation, relative hyperplasia, no left-shift. Granulocyte: ?? Complete normal maturation, no left-shift. Megakaryocyte: Normal in number and morphology. Lymphocyte: ?Scattered mature forms seen, no aggregates appreciated. Other: ? Normal pl asma cells, eosinophils, basophils, and mast cells. Iron stain: ?Iron stores subjectively increased, no ring sideroblasts. DIFFERENTIAL Band/Seg 28%; Lymph 7%; [place] 1%; Eos 4%; Baso 0%; Metamyelocyte 6%; Myelocyte 5%; Promyelocyte 3%; Blast 1%; nRBC's 41%; Plasma cell 4% BONE MARROW BIOPSY and/or CLOT Adequacy: ?Adequate, evaluable marrow present. Cellularity: ?? Variably hypercellular, ~70% (range: 50-90%) Erythroid: ? Precursors numerically increased. Granulocyte: ?? Precursors numerically normal. Megakaryocyte: Normal in number and appearance, no clusterin g seen. Lymphocytes: ?? No abnormal aggregates identified. . BONE MARROW BIOPSY and/or CLOT Other: ? Normal pl asma cells, eosinophils, basophils, and mast cells. Bone: ?Trabecular bone normal for age. CLINICAL INFORMATION Specimen: ? Bone marrow, aspirate and bio psy, right Clinical Diagnosis: ? 74M; new onset leukopenia and thro mbocytopenia Indication for Study: ?? Diagnostic biopsy Specimen (Source) Anatomical Collection Method Collection Time Re ceived Time Location / / Volume Laterality 11/22/2019 10:55 AM EDT Kemi Garcia MD PATHOLOGY/CYTOLOGY ORDERABLE S Performing Organization Address City/State/ZIP Code Phon e Number [address] Myeloid Seq Panel (11/22/2019 10:55 AM EDT) Specimen Anatomical Collection Method Collection Time Receive d Time (Source) Location / / Volume Laterality Bone marrow 11/22/2019 10:55 11/23/2019 8:38 specimen AM EDT AM EDT (specimen) Resulting Agency Comment Spec In Lab Kemi Garcia MD CHEMISTRY ORDERABLES Performing Organization Address City/State/ZIP Code Phon e Number [address] Iron Stain, Bone Marrow (11/22/2019 10:55 AM EDT) Patholo gist Method Time Signature Iron Stain BM See Comment [facility] Comment: See Bone Marrow Report [id number] under Hematopathology Reports. Specimen Anatomical Collection Method Collection Time Receive d Time (Source) Location / / Volume Laterality Bone marrow 11/22/2019 10:55 11/22/2019 specimen AM EDT 11:13 AM EDT (specimen) Resulting Agency Comment Spec In Lab Kemi Garcia MD HEMATOLOGY ORDERABLES Performing Organization Address City/[facility]/ZIP Code Phon e Number [address] Differential, Automated (11/22/2019 10:05 AM EDT) P athologist Signature Neutrophils % 59.7 % [facility] Neutr Abs (ANC) 3.01 1.70 - [facility] 6.10 [facility] x10(3)/[facility] LABORATORY Lymphocytes % 27.6 % [facility] Lymphocytes Abs 1.4 0.9 - 3.2 [facility] x10(3)/[facility] LABORATORY Monocytes % 9.5 % [facility] Monocyte Abs 0.5 0.3 - 0.9 [facility] x10(3)/[facility] LABORATORY Eosinophils % 2.2 % [facility] Eosinophils Abs 0.1 0.0 - 0.4 [facility] x10(3)/[facility] LABORATORY Basophils % 0.6 % [facility] Basophils Abs 0.0 0.0 - 0.1 [facility] x10(3)/[facility] LABORATORY Immature Gran % 0.40 % [facility] Comment: Immature granulocytes(IG's)percentage an d absolute count will include metamyelocytes, myelocytes, and promyelo cytes. Blood smears from CBCs yielding IG's will be scanned manually for concor danjo. If this scan disagrees with the automated IG or if promyelocytes are not ed, a manual differential will be performed. Edna Gran Abs 0.02 0.00 - 0.04 x10(3)/[facility] LABORATORY Specimen Anatomical Collection Method Collection Time Receive d Time (Source) Location / / Volume Laterality Blood specimen 11/22/2019 10:05 0 (specimen) AM EDT 11:01 AM EDT Resulting Agency Comment Spec In Lab Kemi Garcia MD HEMATOLOGY ORDERABLES Performing Organization Address City/State/[place] [address] (ABNORMAL) Hemogram (11/22/2019 10:05 AM EDT) P athologist Signature WBC 5.0 4.0 - 9.5 [facility] x10(3)/[facility] LABORATORY RBC 5.05 4.58 - [facility] 5.54 [facility] x10(6)/[facility] LABORATORY Hemoglobin 15.9 13.7 - [facility] 16.5 gm/dL [facility] LABORATORY Hematocrit 46.3 40.5 - [facility] 48.5 % [facility] LABORATORY MCV 91.7 82.9 - [facility] 93.1 [facility] LABORATORY MCH 31.5 27.5 - [facility] 32.1 pg [facility] LABORATORY MCHC 34.3 32.0 - [facility] 35.[facility] gm/dL [facility] LABORATORY Platelets 101 (L) 145 - 357 [facility] x10(3)/[facility] LABORATORY RDWSD 41.3 36.0 - [facility] 45.0 [facility] LABORATORY RDWCV 12.3 11.4 - [facility] 13.8 % [facility] LABORATORY MPV 10.6 7.6 - 12.9 [facility] LABORATORY nRBC % Auto 0.0 % [facility] LABORAT[facility] nRBC Abs Auto 0.000 0.000 - RADHA AMADOR 0.000 [facility] x10(3)/[facility] LABORATORY Specimen Anatomical Collection Method Collection Time Receive d Time (Source) Location / / Volume Laterality Blood specimen 11/22/2019 10:05 0 (specimen) AM EDT 11:01 AM EDT Resulting Agency Comment Spec In Lab Kemi Garcia MD HEMATOLOGY ORDERABLES Performing Organization Address City/State/Z[place] [address] documented in this encounter Visit Diagnoses Not on filedocumented in this encounter Active and Recently Administered Medications Times are shown in EDT. No Frequency Medication Order 11/20/2019 11/21/2019 11/22/2019 sodium bicarbonate 8.4 % (1 meq/ml) IV solution 1045 (Due) 1 dose, Starting 11/22/19 at 1042, Unt il 11/22/19 at 2244, Radha Kauffman: cabinet override documented in this encounter Care Teams Cooker Soda Relationship Specialty Start Date End Date Dung Silver DO PCP - General 10/03/[address] [place] [address] documented as of this encounter
--- OUTSIDE RECORDS SUMMARY | 2021-11-15 00:50 | XMS_ITS | Encounter Summary ---
:1945 Author Organization [facility] [place] [address] Care Team Providers Name Role Phone Dung Silver Primary Care Provider Reason for Visit Reason Comments Follow-up Encounter Details Date Type Department Care Team Description 12/07/2019 Office Visit Hematology and Oncology [place], [place]ocyt[place] [facility] [place] Kemi [facility] [place] [address] HEMATOLOGY/ONCOLOGY DEPT. [place], [place] [address] (Wo rk) Social History Tobacco [...] Sign Reading Time Taken Comments Blood Pressure 132/74 12/07/2019 1:54 PM EDT Pulse 65 12/07/2019 1:54 PM EDT Temperature 36.5 ??C (97.7 ??F) 12/07/2019 1:54 PM EDT Respiratory Rate 18 12/07/2019 1:54 PM EDT Oxygen Saturation 100% 12/07/2019 1:54 PM EDT Inhaled Oxygen Concentration - - Weight 86.5 kg (190 lb 9.6 oz) 12/07/2019 1:54 PM EDT Height 180.3 cm (5' 10.98) 12/07/2019 1:54 PM EDT Body Mass Index 26.6 12/07/2019 1:54 PM EDT documented in this encounter Progress Notes Kemi Garcia MD - 12/07/2019 2:00 PM EDT Images from the original note were not included. HEMATOLOGY OFFICE VISIT NOTE DATE OF VISIT : 12/07/19 REASON FOR VISIT: To review BM Bx results. HISTORY OF PRESENT ILLNESS Hadley Chawla is a 74 y.o. male with PMH of hypertension, hyperlipidemia presenting for evaluation of leukopenia and thrombocytopenia. Presentation: Routine CBC at PCP's office showed abnormal CBC. He didn't have CBC checked at [facility] in the past few years. This [...] DIAGNOSTIC performed by Kemi Garcia MD at [facility] MEDICATIONS ??? multivitamin Capsule ??? hydroCHLOROthiazide (MICROZIDE) 12.5 mg Capsule ??? losartan (COZAAR) 100 mg Tablet ??? rosuvastatin (Crestor) 10 mg Tablet ALLERGIES/ADR No Known Allergies PERSONAL and SOCIAL HISTORY ?? Lives in [place], [place] from August to Dec, but, mainly lives in [place]: ?? Work history: Retired. 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 ?? ETOH: rare ?? Smoking: No ?? HIPPA Contact Permission: OK to leave voice mail on phone. FAMILY HISTORY No family history on file. Has one brother and one sister. Brother recently from liver cancer. . Has one son and one daughter. No other cancers or blood disorders in the family PHYSICAL EXAM VITAL SIGNS: Blood pressure 132/74, pulse 65, temperature 36.5 ??C (97.7 ??F), temperature source Temporal, resp. rate 18, height 180.3 cm (5' 10.98), weight 86.5 kg (190 lb 9.6 oz), SpO2 100 %. GENERAL: Hadley Chawla is a well-appearing 74 y.o. male in no acute distress. NEUROLOGICAL: Alert and oriented to person, place and time; No focal neurological deficits; PSYCHIATRIC: normal affect and mood LABORATORY BONE MARROW (PERIPHERAL SMEAR, ASPIRATE SMEAR, TOUCH PREP, CORE BIOPSY): ?1. ??Variably hypercellular marrow (average ~70%) showing complete multilineage ? hematopoiesis with a relative erythroid hyperplasia ?2. ??Iron stores are subjectively increased per iron stain ?3. ??Peripheral smear with mild thrombocytopenia ?4. ??Normal male karyotype. Myeloid gene panel with no clonal aberrancies. RADIOLOGY - None ASSESSMENT & PLANS Hadley Chawla is a 74 y.o. male with PMH of hypertension, hyperlipidemia presenting to discuss bone marrow biopsy results. I reviewed the bone marrow biopsy slides and reviewed the results with Mr. Chawla. His bone marrowshowed variably hypercellular marrow (average ~70%) showing complete multilineage hematopoiesis witha relative erythroid hyperplasia. No dysplastic changes or evidence of lympho/myeloproliferative neop lasm seen. Cytogenetics revealed normal karyotype. NGS is negative for any clonal aberrancies. 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 We discussed all the above. He is going to [place] on 01/05. So, he asked me if he should find a doctorthere. I recommend checking his CBC during the week of Jan 01. Locally at [facility]. Will determine when he needs rpt labs based on this CBC. He agreed wth the plan. Kemi Garcia MD [facility] CC: DO Nadeem Yeh Thomas l documented in this encounter Plan of Treatment Not on filedocumented as of this encounter Visit Diagnoses Diagnosis Thrombocytopenia Thrombocytopenia, unspecified documented in this encounter Care Teams Computer Operations Technician Relationship Specialty Start Date End Date Dung Silver DO PCP - General 10/03/11 [facility] [address] [place] [address] documented as of this encounter
--- OUTSIDE RECORDS SUMMARY | 2021-11-15 00:51 | XMS_ITS | Encounter Summary ---
:[address] [facility] Address [address] [place] [address] Care Team Providers Name Role Phone Unavailable Primary Care Provider Unavailable Encounter Details Date Type Department Care Team Description 06/16/2005 Hospital Encounter [facility] Alpesh Contreras MD [address] [place] [address] [address] [place] [address] [facility] Asha Machado MD [facility] [facility] [address] [place] [address] [address] [place], [place] [id number] Social History Tobacco Use Types Packs/Day Years Used Date Never Assessed Sex Assigned at Date Recorded Not on file documented as of this encounter Discharge Disposition Disposition Code Departure Means Destination Auto Discharge documented in this encounter Plan of Treatment Not on filedocumented as of this encounter Procedures Procedure Name Priority Date/Time Associated Diagnosis Comme nts RAD US NECK/THYROID 06/16/2005 10:36 Resu lts for this EDT procedure are i n the results section. RAD US GUIDANCE 06/16/2005 10:36 Results for this BIOPSY FNA THYROID EDT procedure are in the results section. documented in this encounter Results RAD US GUIDANCE BIOPSY FNA THYROID (06/16/2005 10:36 EDT) Anatomical Region Laterality Modality Other Specimen Narrative [facility] - 09/30/2008 11 :02 EDT RIGHT THYROID NODULE ULTRASOUND GUIDED FINE NEEDLE ASPIRATION OF RIGHT THYROID NODULE 06/16/05 CLINICAL HISTORY: ??59 year old with a n odule previously aspirated yielding insufficient material. FINDINGS: Scans of the thyroid show a do minant nodule in the mid right thyroid gland posteriorly measurin g approximately 16mm in diameter. The nodule has a more echogeni c periphery and a hypoechoic central region. Using sterile technique under ultrasound guidance, a 16 gauge coaxial needle was inserted to the edge of the thyroid gland. Through this needle seven passes were made with 25 gauge spinal needles. These yielded small amou nts of glandular cells, but mostly blood. The project internship present did not feel that additional passes would yield much additional mater ial. To be certain that sufficient material was obtained, theref ore, three 20 gauge core biopsies were performed of the nodule us ing a 20 gauge spring loaded core biopsy needle. The cores of tissue that placed in buffered formalin and sent to surgical pathology. No complications or hematoma seen postprocedure. IMPRESSION: Seven fine needle aspirates and three core biopsies obtained from a dominant right thyroid n odule as noted without complication. D 06/16/05 T 06/17/05 /jl Addendum Begins This report has been addended for associ ation with another accession #, for billing purposes. The text has no t been altered. Addendum Ends Procedure Note Henry Jean, DO - 09/30/2008 RIGHT THYROID NODULE ULTRASOUND GUIDED FINE NEEDLE ASPIRATION OF RIGHT THYROID NODULE 06/16/05 CLINICAL HISTORY: 59 year old with a nod ule previously aspirated yielding insufficient material. FINDINGS: Scans of the thyroid show a do minant nodule in the mid right thyroid gland posteriorly measurin g approximately 16mm in diameter. The nodule has a more echogeni c periphery and a hypoechoic central region. Using sterile technique under ultrasound guidance, a 16 gauge coaxial needle was inserted to the edge of the thyroid gland. Through this needle seven passes were made with 25 gauge spinal needles. These yielded small amou nts of glandular cells, but mostly blood. The project internship present did not feel that additional passes would yield much additional mater ial. To be certain that sufficient material was obtained, theref ore, three 20 gauge core biopsies were performed of the nodule us ing a 20 gauge spring loaded core biopsy needle. The cores of tissue that placed in buffered formalin and sent to surgical pathology. No complications or hematoma seen postprocedure. IMPRESSION: Seven fine needle aspirates and three core biopsies obtained from a dominant right thyroid n odule as noted without complication. D 06/16/05 T 06/17/05 /jl Addendum Begins This report has been addended for associ ation with another accession #, for billing purposes. The text has no t been altered. Addendum Ends Performing Organization Address City/State/ZIP Code Phon e Number [facility] [address] [facility] [address] [facility] [address] [place], [place] [address] RAD US NECK/THYROID (06/16/2005 10:36 EDT) Anatomical Region Laterality Modality Other Specimen Narrative [facility] - 09/30/2008 11 :02 EDT RIGHT THYROID NODULE ULTRASOUND GUIDED FINE NEEDLE ASPIRATION OF RIGHT THYROID NODULE 06/16/05 CLINICAL HISTORY: ??59 year old with a n odule previously aspirated yielding insufficient material. FINDINGS: Scans of the thyroid show a do minant nodule in the mid right thyroid gland posteriorly measurin g approximately 16mm in diameter. The nodule has a more echogeni c periphery and a hypoechoic central region. Using sterile technique under ultrasound guidance, a 16 gauge coaxial needle was inserted to the edge of the thyroid gland. Through this needle seven passes were made with 25 gauge spinal needles. These yielded small amou nts of glandular cells, but mostly blood. The project internship present did not feel that additional passes would yield much additional mater ial. To be certain that sufficient material was obtained, theref ore, three 20 gauge core biopsies were performed of the nodule us ing a 20 gauge spring loaded core biopsy needle. The cores of tissue that placed in buffered formalin and sent to surgical pathology. No complications or hematoma seen postprocedure. IMPRESSION: Seven fine needle aspirates and three core biopsies obtained from a dominant right thyroid n odule as noted without complication. D 06/16/05 T 06/17/05 /jl Addendum Begins This report has been addended for associ ation with another accession #, for billing purposes. The text has no t been altered. Addendum Ends Procedure Note Henry Jean, DO - 09/30/2008 RIGHT THYROID NODULE ULTRASOUND GUIDED FINE NEEDLE ASPIRATION OF RIGHT THYROID NODULE 06/16/05 CLINICAL HISTORY: 59 year old with a nod ule previously aspirated yielding insufficient material. FINDINGS: Scans of the thyroid show a do minant nodule in the mid right thyroid gland posteriorly measurin g approximately 16mm in diameter. The nodule has a more echogeni c periphery and a hypoechoic central region. Using sterile technique under ultrasound guidance, a 16 gauge coaxial needle was inserted to the edge of the thyroid gland. Through this needle seven passes were made with 25 gauge spinal needles. These yielded small amou nts of glandular cells, but mostly blood. The project internship present did not feel that additional passes would yield much additional mater ial. To be certain that sufficient material was obtained, theref ore, three 20 gauge core biopsies were performed of the nodule us ing a 20 gauge spring loaded core biopsy needle. The cores of tissue that placed in buffered formalin and sent to surgical pathology. No complications or hematoma seen postprocedure. IMPRESSION: Seven fine needle aspirates and three core biopsies obtained from a dominant right thyroid n odule as noted without complication. D 06/16/05 T 06/17/05 /jacki Addendum Begins This report has been addended for associ ation with another accession #, for billing purposes. The text has no t been altered. Addendum Ends Performing Organization Address City/State/ZIP Code Phon e Number [facility] [address] [facility] [address] [facility] [address] [place], [place] [address] documented in this encounter Visit Diagnoses Not on filedocumented in this encounter
--- OUTSIDE RECORDS SUMMARY | 2021-11-15 00:51 | XMS_ITS | Encounter Summary ---
:1945 Author Organization [facility] Address [address] [place] [address] Care Team Providers Name Role Phone Dung Silver DO Primary Care Provider Encounter Details Date Type Department Care Team Description 08/27/2005 Results Only [facility] ENT - Arin Beckham MD [facility] [address] [place] [address] Social History Tobacco Use Types Packs/Day Years Used Date Never Assessed Sex Assigned at Date Recorded Not on file documented as of this encounter Plan of Treatment Not on filedocumented as of this encounter Procedures Procedure Name Priority Date/Time Associated Diagnosis Comme nts SURGICAL PATHOLOGY Routine 08/27/2005 0:00 EDT Re sults for this procedure are i n the results section. documented in this encounter Results SURGICAL PATHOLOGY (08/27/2005 0:00 EDT) Pathology Report: SURGICAL PATHOLOGY REPORT [facility] Reports generated via electronic interface contain christina ginal data; LAB however they are lacking the format of the original re port. Caution should be taken when reading/interpreting unfo rmatted reports. Name: ? ALEJO CHAWLA ? Accession #: ? [id number] ? : ? 1945 (Age: 60) ??M ? Collect Date: ? 08/27/2005 ? Location: ? M006 ? Receive Date: ? 006 ? Provider: DEEPTI COREAS MD Copy to: DUNG SILVER DO ? Final Pathologic Diagnosis: ? Thyroid, right, lower anterior isthmus, lobecto my: - Multinodular goiter with dominant micr ofollicular adenomatous nodule (2.4 cm in greatest dimension). Comment: ? Deeper levels of selected slides were examined. ??(Bárbara Faust)/[facility] Document reviewed and electronically signed by: Hattie Valladares MD Report ??Date: 09/03/2005 18:14 By the signature above, the attending physician certif ies that he/she has personally conducted a gross and/or microscopic examin ation of the described specimens and rendered or confirmed the above diagnosi s. Specimen(s) Received: ? Lower anterior isthmus, right lobe of thyroid Clinical History: ? Right thyroid nodule Gross Description: ? Received in normal sa line labelled Chawla and lower anterior isthmus, right lobe of thyroid is a 25 gram piece of thyroid t issue which includes a right lobe and isthmus yung n and measures 5.2 x 3.3 x 1.5 cm. ??The isthmus is inked red, the posterior mar gin is inked black and the anterior margin is inked blue. ??The specimen is seri ally sectioned from superior to inferior into levels 1-11, 1 being the most superior and 11 being the most inferior. ??Cut section reveals a 2.4 x 1.5 x 1.5 cm well circumscribed nodule with cystic areas. ??The nodule extends from level 1 (superior) to level 5. ??T he remaining pelvic parenchyma is brown and firm with pedroza-white flec ks which appear more distinct towards the inferior portion of the lobe. ??Representa tive sections of the specimen are submitted as follows: BLOCK COATES A1 ?Isthmus margin, en face A2 ?Level 1, perpendicular sections A3 ?Level 2 A4 ?Level 3 A5, A6 ?Level 4, bisected A7 ?Level 5 A8 ?Level 8 A9 ?Level 10 A10 ?Level 11, perpendicular sections (A. Govind-CT)/mpl End of Report Specimen Performing Organization Address City/State/ZIP Code Phon e Number [facility] [address] [place] [address] SERVICES [facility] [address] [place] [address] documented in this encounter Visit Diagnoses Not on filedocumented in this encounter Care Teams Disaster Recovery Specialist Relationship Specialty Start Date End Date Dung Silver, PCP - General 02/01/09 [address] [place] [address] documented as of this encounter
--- OUTSIDE RECORDS SUMMARY | 2021-11-15 00:51 | XMS_ITS | Encounter Summary ---
:1945 Author Organization [facility] Address [address] [place] [address] Care Team Providers Name Role Phone Dung Silver Primary Care Provider Encounter Details Date Type Department Care Team Description 06/26/2005 Before PRISM Converted [facility], Visit (Maple) Maple conversion MD Jarod [address] [place] [address] Social History Tobacco Use Types Packs/Day Years Used Date Never Assessed Sex Assigned at Date Recorded Not on file documented as of this encounter Progress Notes Jarod Morataya MD - 02/24/2009 1046 EST DIVISION OF OTOLARYNGOLOGY July 03, 2005 Alpesh Contreras MD Endocrinolgy & Metabolic Medicine [facility], [place] [address] DOS 06/26/2005 Dear Alpesh: Thank you for requesting the consultation on Hadley Chawla. He is a very pleasant gentleman with a follicular lesion in the right lobe of his thyroid. This was discovered incidentally as you know at the time of MRI for his shoulder injury. We are making arrangements to proceed with a right thyroid lobectomy and I have indicated to him the nature of the procedure and potential risks. I donprecisely know when this is to be done, but we will try to make arrangements to keep you apprised of the date annieshelby may follow his pathology. Sincerely, Signed by Jarod Morataya MD 07/09/2005 07:54 Johnie Luaman, MD Jarod Morataya MD - Jarod Morataya MD P - wlp Job ID: Tape Document ID: [id number] cc: Alpesh Contreras MD documented in this encounter Plan of Treatment Not on filedocumented as of this encounter Visit Diagnoses Not on filedocumented in this encounter Care Teams Brusher And Shearer Relationship Specialty Start Date End Date Dung Silver, DO PCP - General 02/01/[address] [place] [address] MARGARITA LEON [address] documented as of this encounter
--- OUTSIDE RECORDS SUMMARY | 2021-11-15 00:51 | XMS_ITS | Encounter Summary ---
:1945 Author Organization [facility] Address [address] [place] [address] Care Team Providers Name Role Phone Dung Silver DO Primary Care Provider Encounter Details Date Type Department Care Team Description 07/07/2006 Hospital Encounter [facility] [place] - Alpesh Contreras MD [address] [address] [address] [place] [phone] (Wo rk) Social History Tobacco Use Types Packs/Day Years Used Date Never Assessed Sex Assigned at Date Recorded Not on file documented as of this encounter Plan of Treatment Not on filedocumented as of this encounter Procedures Procedure Name Priority Date/Time Associated Diagnosis Comme nts THYROGLOBULIN, Routine 07/07/2006 11:55 Results f or this TUMOR MARKER, S EDT procedure ar e in the results section. TSH Routine 07/07/2006 11:55 Results for this EDT procedure are i n the results section. T4 FREE Routine 07/07/2006 11:55 Results for this EDT procedure are i n the results section. documented in this encounter Results TSH (07/07/2006 11:55 EDT) Pathologist Sig nature TSH 3.48 0.35 - 5.00 uIU/mL [facility] Specimen Performing Organization Address City/State/ZIP Code Phon e Number [facility] [address] [place] [address] SERVICES [facility] [address] [place] [address] THYROGLOBULIN TUMOR MARKER (07/07/2006 11:55 EDT) Thyroglobulin <1.8Unit: IU/mL(Note) [facility] Antibody Screen -- EXPECTED VALUES -- ? LAB [address] (Ref Range) <4.0 ? Please note reference range change effective 06/30/2006. ? Thyroglobulin Tumor 13Unit: ng/mL(Note) [facility] Marker -- EXPECTED VALUES -- ? LAB (Ref Range) <=33 ? Athyrotic individuals ? normally have hTg values ? less than 5 ng/mL. ? The testing method is an imm unoenzymatic assay manufactured ? by [employer] and performed on the [employer] DXI ? 800. ? Values obtained with differe nt assay methods or kits may be ? different and cannot be used interchangeably. ? Test results cannot be inter preted as absolute evidence for ? the presence or absence of m alignant disease. ? Specimens with thyroglobulin concentrations greater than ? 250,000 ng/mL may give false ly lower results. ? Test Performed by: ? [facility] of Lab Med a nd Pathology ? [address], [place] [address] ? Sports Athletic Trainer: Keyon Bernstein III, M.D. ? Specimen Performing Organization Address City/State/ZIP Code Phon e Number [facility] [address] [place] [address] SERVICES [facility] [address] [place] [address] T4 FREE (07/07/2006 11:55 EDT) Pathologist Sig nature Free T4 1.1 0.8 - 1.8 ng/dL [facility] Specimen Performing Organization Address City/State/ZIP Code Phon e Number [facility] [address] [place] [address] SERVICES [facility] [address] [place] [address] documented in this encounter Visit Diagnoses Not on filedocumented in this encounter Care Teams Strategic Debriefing Specialist Relationship Specialty Start Date End Date Dung Silver DO PCP - General 02/01/09 [address] [place] [id number] documented as of this encounter
--- OUTSIDE RECORDS SUMMARY | 2021-11-15 00:51 | XMS_ITS | Encounter Summary ---
:1945 Author Organization [facility] Address [address] [place] [address] Care Team Providers Name Role Phone Unavailable Primary Care Provider Unavailable Encounter Details Date Type Department Care Team Description 07/07/2006 Before PRISM Converted [facility] - Donnell Contreras oe Visit (Maple) Maple conversion MD Yong [address] [address] [facility] [address] [place] [id number] Social History Tobacco Use Types Packs/Day Years Used Date Never Assessed Sex Assigned at Date Recorded Not on file documented as of this encounter Progress Notes Alpesh Contreras MD - 01/21/2009 1217 EST DIVISION OF ENDOCRINOLOGY PROGRESS/FOLLOWUP NOTE - 07/07/2006 SUBJECTIVE Mr. Chawla comes in today for evaluation status post right thyroid lobectomy for a very large benign adenoma. When we saw the patient last a biopsy really was not adequate; it showed follicular lesion, but pathology report showed that there was no evidence of papillary carcinoma on surgical specimen. The surgery was done by Dr. Jarod Morataya in June of 2005. The patient states he has no symptoms. He has no evidence of hyper- or hypothyroidism. No diarrhea, constipation, jitteriness, heat or cold intolerance. He has no cough, difficulty in swallowing, and notices no abnormal growth or masses in his neck. He is on no therapy for his thyroid. CURRENT MEDICATIONS He takes Cindy p.r.n., Lipitor, and a multivitamin. LABORATORY DATA The patient's last blood tests showed that a TSH in February was 3.39. In April of 2005, his TSH was 2.12. The patient also had an ultrasound done at [facility] which measured the right lobe at 6.1 x 2.3 x 2.5 cm and the biopsy report stated that there was a 3.5 x 1.9 x 2.0, heterogeneous, mostly hypoechoic mass in the mid portion of the right lobe. There were also a few millimetercystic areas on the left side as well as one on the right side. The patient underwent that biopsy. OBJECTIVE The patient's physical examination today shows that he is 5 feet 11 inches and weighs 188 pounds. Blood pressure is 154/90. Pulse is 72. He has no exophthalmos or proptosis. He has a thyroidectomy scarthat is hardly visible. He has no palpable tissue on the right. The left side shows at least full thyroid gland. He has no tremor. Normal deep tendon reflexes with no hung-up relaxation phase. Normal skin temperature, texture, and moisture. IMPRESSION AND PLAN Thyroid adenoma, benign, on the right lobe, removed surgically. What I would like to do is measure his left lobe to be sure that the hypertrophy associated with a partial thyroidectomy does not cause any deviation of the trachea and this will bebaseline to see if at one point or another we have to intervene with thyroid suppression. He is on no medication at this point. I have also sent him to the lab today for a free T4, TSH, and thyroid antibodies and we will follow him annually. ULTRASOUND REPORT PROCEDURE Utilizing a Picus system, a biplanar B-mode ultrasound was performed of the thyroid and neck structures. The right lobe of the thyroid measures 1.0 x 0.8 x 0.5 cm. This is residual and it looks homogeneous. The left lobe measures 3.7x 1.8 x 1.7 cm. It is pretty homogeneous with two or three less than 5 mm cystic areas seen, but there does not seem to be any deviation of the trachea. The thyroid looksextremely normal and is in the normal thyroid bed. IMPRESSION At this point, we will go on with the above approach. Should he have any abnormalities in his thyroid function, I will notify him and intervene appropriately by telephone. ADDENDUN labs= euthyroid 07/07/2006 11:55 T4, Free 1.1 ng/dL 0.8-1.8 Final * 07/07/2006 11:55 Thyroglobulin Final * 07/07/2006 11:55 Thyroglobulin Ab Scn Y Final * 07/07/2006 11:55 Thyroglob Tumor Mrkr 13 Y Final * 07/07/2006 11:55 TSH 3.48 uIU/m... 0.35-5.00 Final * Signed by Alpesh Contreras MD 07/10/2006 09:03 Simran Contreras [facility] HospitalAssociate Professor of MedicineAlpesh Contreras MD Alpesh Contreras MD [facility] sephora operations consultant - Alpesh Contreras MD P - KAB Job ID: [id number] Document ID: [id number] cc: Dung Silver DO cc: Dung Silver DO documented in this encounter Plan of Treatment Not on filedocumented as of this encounter Visit Diagnoses Not on filedocumented in this encounter
--- OUTSIDE RECORDS SUMMARY | 2021-11-15 00:51 | XMS_ITS | Encounter Summary ---
:1945 Author Organization [facility] Address [address] [place] [address] Care Team Providers Name Role Phone NadeemDung lopez DO Primary Care Provider Encounter Details Date Type Department Care Team Description 06/16/2005 Results Only [facility] - [place] conversion [address] [facility] [address] [place], [place] [id number] [place] [phone] (Wo rk) Social History Tobacco Use Types Packs/Day Years Used Date Never Assessed Sex Assigned at Date Recorded Not on file documented as of this encounter Plan of Treatment Not on filedocumented as of this encounter Procedures Procedure Name Priority Date/Time Associated Diagnosis Comme nts CYTOPATHOLOGY Routine 06/16/2005 0:00 EDT Results for this procedure are i n the results section. SURGICAL PATHOLOGY Routine 06/16/2005 0:00 EDT Re sults for this procedure are i n the results section. documented in this encounter Results SURGICAL PATHOLOGY (06/16/2005 0:00 EDT) Pathology Report: SURGICAL PATHOLOGY REPORT [facility] Reports generated via electronic interface contain christina ginal data; LAB however they are lacking the format of the original re port. Caution should be taken when reading/interpreting unfo rmatted reports. Name: ? ALEJO CHAWLA ? Accession #: ? [id number] ? : ? 1945 (Age: 59) ??M ? Collect Date: ? 06/16/2005 ? Location: ? [facility] ? Receive Date: ? 006 ? Provider: HENRY JOHNSON MD Copy to: DUNG NELSON DO LEIGHTON TORRES ? Final Pathologic Diagnosis: ? Thyroid, right, nodule, needle core biopsy: - Thyroid follicular lesion ??See comment. Comment: ? This case was reviewe d at intradepartmental consultation conference. ??The biopsy consists of an isolat ed group of small follicles with oxyphilic cytoplasm in a background of larger follicles with flattened fol licular epithelium.Features of papillary carcinoma are not see n. (). Document reviewed and electronically signed by: CATHY BA MD Report ??Date: 06/18/2005 17:10 By the signature above, the attending physician certif ies that he/she has personally conducted a gross and/or microscopic examin ation of the described specimens and rendered or confirmed the above diagnosi s. Specimen(s) Received: ? 3-20 core bx upper middle and lower parts of no dule Clinical History: ? 16 mm R thy medial; bloody aspirates; cli nical diagnosis code: ??241.1 Gross Description: ? Received in formalin labelled Chawla are mu ltiple fragments of brown-red, cylindrical cores of tissue ranging in length from 0.2 to 0.4 cm, and averaging less than 0.1 cm i n diameter. ??The specimen is submitted entirely in one cassette. ??(Dr. Meehan)/[facility] End of Report Specimen Performing Organization Address City/State/ZIP Code Phon e Number [facility] [address] [place] [address] SERVICES [facility] [address] [place] [address] CYTOPATHOLOGY (06/16/2005 0:00 EDT) Pathology Report: CYTOPATHOLOGY REPORT [facility] Reports generated via electronic interface contain christina ginal data; however they are lacking the format of the original re port. Caution should be taken when reading/interpreting unfo rmatted reports. Name: ? ALEJO CHAWLA ? Accession #: ? [id number] : ? 1945 (Age: 59) ??M ?Collect Date: ? 0405/2005 Location: ? [facility] ? Receive Date : ? 06/16/2005 Provider: ? HENRY JOHNSON MD Copy to: ?DUNG ENLSON DO ? Fine Needle Aspiratio n/Core Biopsy (Assisted) ? Radiology Department, [place] [address] ([facility]) ? CYTOLOGIC DIAGNOSIS: ? Thyroid, right lobe, fine needle aspiration: - Morphologic description only. ??See comment. ? COMMENT: ? The aspirate smears s how several benign-appearing follicular groups as well as scattered hemosiderin-laden macrophages. ??No collo id is noted. ??The paucicellular nature of the specimen combined with blo od clots obscuring the morphology of the follicular cells, precludes a more d efinitive diagnosis in this case. ??Please see the territory representative core [id number]. ? ?(Dr. Yip)/mpl Document reviewed and electronically signed by: ? ANSON NGUYEN MD [facility] Report Date: ??06/17/2005 16:52 By the signature above, the attending physician certif ies that he/she has personally conducted a gross and/or microscopic examin ation of the described specimens and rendered or confirmed the above diagnosi s. Specimen Type: ? Thyroid, Fine Needle Aspiration, Right mid Clinical History: ? 16mm right mid thyroid nodule; clinical d iagnosis code: thyroid nodule ? Rapid Interpretation: ? Pass 1-3: ??Blood and rare follic ular cells. ?? Pass 4: ??Colloid, rare follicular groups; Pass 5: Benign follicular gr oups. ?? Pass 6: ??Blood and rare follicular cells. ?? Pass 7: Blood only. (Dr. Rudy Yip; 06/16/05) I reviewed the case with the Fellow and agree with the diagnosis. (Dr Ariel Grimes; 06/16/05) Gross Description: ? 14 fixed prepared slides, 7 air dried prepared slides, and 1 tube of Cytolyt were received and pr ocessed by selective cellular enhancement technique. ? End of Report Specimen Performing Organization Address City/State/ZIP Code Phon e Number [facility] [address] [place] [address] SERVICES [facility] [address] [place] [address] documented in this encounter Visit Diagnoses Not on filedocumented in this encounter Care Teams Leaflet Distributor Relationship Specialty Start Date End Date Dung Nelson, DO PCP - General 02/01/09 [address] [place] [id number] documented as of this encounter
--- OUTSIDE RECORDS SUMMARY | 2021-11-15 00:51 | XMS_ITS | Encounter Summary ---
:1945 Author Organization [facility] Address [address] [place] [address] Care Team Providers Name Role Phone Dung Silver DO Primary Care Provider Encounter Details Date Type Department Care Team Description 05/13/2005 Results Only [facility] Nikole Henao, Endocrinology - [facility] sharmila COATES [address] [facility] [address] [place], [place] [address] [place] [address] [place] [phone] (Wo rk) Social History Tobacco Use Types Packs/Day Years Used Date Never Assessed Sex Assigned at Date Recorded Not on file documented as of this encounter Plan of Treatment Not on filedocumented as of this encounter Procedures Procedure Name Priority Date/Time Associated Diagnosis Comme nts CYTOPATHOLOGY Routine 05/13/2005 0:00 EST Results for this procedure are i n the results section . documented in this encounter Results CYTOPATHOLOGY (05/13/2005 0:00 EST) Pathology Report: CYTOPATHOLOGY REPORT [facility] Reports generated via electronic interface contain christina ginal data; however they are lacking the format of the original re port. Caution should be taken when reading/interpreting unfo rmatted reports. Name: ? ALEJO CHAWLA ? Accession #: ? [id number] : ? 1945 (Age: 59) ??M ?Collect Date: ? 04/17 Location: ? [facility] ? Receive Date : ? 05/14/2005 Provider: ? NIKOLE HENAO MD Copy to: ?[facility] ? CYTOLOGIC DIAGNOSIS: ? Thyroid, right nodule, fine needle aspiration: - Morphologic description only. ??See comment. ? COMMENT: ? The specimen is extre graham paucicellular with only rare groups of follicular cells present. ??The follicu lar cells are arranged in small to intermediate sized follicular arrangements with some crowdi ng of the epithelial cells. ??There is scant colloid present. ??The paucicellularity limits t he interpretation and clinical correlation and follow up are recommended. ?? (Dr. Valladares)/[facility] Document reviewed and electronically signed by: ? MIGUEL ÁNGEL VALLADARES MD Report Date: ??05/14/2005 17:12 By the signature above, the attending physician certif ies that he/she has personally conducted a gross and/or microscopic examin ation of the described specimens and rendered or confirmed the above diagnosi s. Specimen Type: ? Thyroid, Fine Needle Aspiration, Right Clinical History: ? Nontoxic MNG. FNA of Right thyroid nodule, lump size 3 cm; clinical diagnosis code: 241.1 ? Gross Description: ? 4 fixed prepared slid es, 6 air dried prepared slides, and 1 tube of Cytolyt were received and processed by selective cellular enha ncement technique. ? End of Report Specimen Performing Organization Address City/State/ZIP Code Phon e Number [facility] [address] [place] [phone] SERVICES [facility] [address] [place] [address] documented in this encounter Visit Diagnoses Not on filedocumented in this encounter Care Teams Material Yard Clerk Relationship Specialty Start Date End Date Dung Silver, PCP - General 02/01/[address] [facility] [place] [address] documented as of this encounter
--- OUTSIDE RECORDS SUMMARY | 2021-11-15 00:51 | XMS_ITS | Encounter Summary ---
:1945 Author Organization [facility] Address [address] [place] [address] Care Team Providers Name Role Phone Nadeem, Dung Dejah Primary Care Provider Encounter Details Date Type Department Care Team Description 12/02/2019 Lab Requisition [facility] Ghada Howell, Encounter for Pathology & MD screening for Laboratory Medicine [facility] malignant neoplasm - [place], [place] of colon 111 [facility] [address] [place] [address] Social History Tobacco Use Types Packs/Day Years Used Date Never Assessed Sex Assigned at Date Recorded Not on file documented as of this encounter Plan of Treatment Not on filedocumented as of this encounter Procedures Procedure Name Priority Date/Time Associated Diagnosis Comme nts SURGICAL PATHOLOGY Today 12/02/2019 9:47 EDT Encounter for R esults for this screening for procedure are in malignant neoplasm the resul ts of colon section. documented in this encounter Results SURGICAL PATHOLOGY (12/02/2019 9:47 EDT) Final Diagnosis A. RECTUM, POLYP, BIOPSY: [facility] - Fragments of tubulovillous adenoma. [facility] Attestation By the signature [facility] Electronica lly below, the attending CENTER signed by Rom Carr, physician certifies LABORATORY Tiana Arce MD on that they have 1) SERVICES 12/05/2019 at 1145 personally conducted a gross and/or microscopic examination of the described specimen(s), and/or personally interpreted the results of laboratory testing of the described specimen(s), and 2) personally rendered or confirmed the above diagnosis. Clinical History Colon cancer [facility]ORATORY SERVICES Gross Description A. [facility] Received in formalin kain d with proper patient identification (initials M, J) and rectal polyp is an aggregate of polypoid tissue (1.3 x 0.7 x 0.5 cm). The specimens are submitted entirely in A1-A3. [facility] 12/02/2019 16:34 SERVICES Performing Lab [facility] SERVICES Scanned Images [facility] SERVICES Specimen Tissue - Specimen from rectum (specimen) Performing Organization Address City/State/ZIP Code Phon e Number [facility] [address] [place] [address] SERVICES documented in this encounter Visit Diagnoses Diagnosis Encounter for screening for malignant ne oplasm of colon Special screening for malignant neoplasm s, colon documented in this encounter Care Teams Laborer Concrete Plant Relationship Specialty Start Date End Date Dung Silver DO PCP - General 02/01/09 [employer] [address] [place], [place] [address] documented as of this encounter
--- OUTSIDE RECORDS SUMMARY | 2021-11-15 00:51 | XMS_ITS | Encounter Summary ---
:1945 Author Organization [facility] Address [address] [place] [address] Care Team Providers Name Role Phone Dung Silver DO Primary Care Provider Encounter Details Date Type Department Care Team Description 09/04/2005 Hospital Encounter [facility] MD Willy 111 [facility] [address] [place], [place] [phone] [place] [address] [place], [address] [place] [phone] (Wo rk) Social History Tobacco Use Types Packs/Day Years Used Date Never Assessed Sex Assigned at Date Recorded Not on file documented as of this encounter Plan of Treatment Not on filedocumented as of this encounter Visit Diagnoses Not on filedocumented in this encounter Care Teams Casino Dealer Relationship Specialty Start Date End Date Dung Silver DO PCP - General 02/01/09 [address] [place] [id number] documented as of this encounter
--- OUTSIDE RECORDS SUMMARY | 2021-11-15 00:51 | XMS_ITS | Encounter Summary ---
:1945 Author Organization [facility] Address [address] [place] [address] Care Team Providers Name Role Phone Unavailable Primary Care Provider Unavailable Encounter Details Date Type Department Care Team Description 06/24/2005 Hospital Encounter [facility] - Asha Machado MD [facility] FA HOUSESTAFF MAIL 111 [facility] [address] [place] [address] [place] [address] Social History Tobacco Use Types Packs/Day Years Used Date Never Assessed Sex Assigned at Date Recorded Not on file documented as of this encounter Discharge Disposition Disposition Code Departure Means Destination Auto Discharge documented in this encounter Plan of Treatment Not on filedocumented as of this encounter Procedures Procedure Name Priority Date/Time Associated Diagnosis Comme nts NM THYROID SCAN 06/24/2005 14:00 Results for this ONLY EDT procedure are i n the results section. documented in this encounter Results NM THYROID SCAN ONLY (06/24/2005 14:00 EDT) Anatomical Region Laterality Modality Other Specimen Narrative [facility] - 09/30/2008 14 :08 EDT I-123 THYROID SCAN ONLY, RT SOLITARY NODULE, DNA CONSISTANT W/ FOLLICULAR LESION, EVAL FOR COLD AREAS THYROID SCAN: ??06/24/05 INDICATIONS: ??60-year-old male with rig ht solitary nodule. ??Fine needle aspiration consistent with follic ular lesion. ??Scan to evaluate for cold areas. TECHNIQUE: After the IV injection of 0.2 25 mCi Tc-99m I-123, standard thyroid images are obtained. FINDINGS: ??There is decreased radiotrac er uptake in the portion of the right lobe of the thyroid which maribell esponds to the lesion seen on ultrasound. ??No other cold nodules are identified. IMPRESSION: ??Cold nodule in right lobe of thyroid without other visible lesions present. Findings discussed with the patient on t he date of the exam by Drs. Falcon and Gregg. D: ??06/24/05 T: ??06/26/05/sb I have personally reviewed the images an d the above interpretation and agree with the findings. Procedure Note Tam Escobedo MD / Jah Cox MD - 09/30/2008 I-123 THYROID SCAN ONLY, RT SOLITARY NO DULE, DNA CONSISTANT W/ FOLLICULAR LESION, EVAL FOR COLD AREAS THYROID SCAN: 06/24/05 INDICATIONS: 60-year-old male with right solitary nodule. Fine needle aspiration consistent with follic ular lesion. Scan to evaluate for cold areas. TECHNIQUE: After the IV injection of 0.2 25 mCi Tc-99m I-123, standard thyroid images are obtained. FINDINGS: There is decreased radiotracer uptake in the portion of the right lobe of the thyroid which maribell esponds to the lesion seen on ultrasound. No other cold nodules are id entified. IMPRESSION: Cold nodule in right lobe of thyroid without other visible lesions present. Findings discussed with the patient on t he date of the exam by Drs. Falcon and Gregg. / I have personally reviewed the images an d the above interpretation and agree with the findings. Performing Organization Address City/State/ZIP Code Phon e Number [facility] 111 [facility] [address] [facility] [address] [place], [place] [address] documented in this encounter Visit Diagnoses Not on filedocumented in this encounter
--- OUTSIDE RECORDS SUMMARY | 2021-11-15 00:51 | XMS_ITS | Encounter Summary ---
:1945 Author Organization [facility] Address [address] [place] [address] Care Team Providers Name Role Phone Dung Silver DO Primary Care Provider Encounter Details Date Type Department Care Team Description 06/26/2005 Hospital Encounter [facility] [address] [place], [place] [id number] Social History Tobacco Use Types Packs/Day Years Used Date Never Assessed Sex Assigned at Date Recorded Not on file documented as of this encounter Plan of Treatment Not on filedocumented as of this encounter Visit Diagnoses Not on filedocumented in this encounter Care Teams Information Clerk Brokerage Relationship Specialty Start Date End Date Dung Silver DO PCP - General 02/01/09 [address] [place] [place] [id number] documented as of this encounter
--- OUTSIDE RECORDS SUMMARY | 2021-11-15 00:51 | XMS_ITS | Encounter Summary ---
:1945 Author Organization [facility] Address [address] [place] [address] Care Team Providers Name Role Phone NadeemDung lopez Primary Care Provider Encounter Details Date Type Department Care Team Description 09/04/2005 Before [facility] - Tam Brennan Converted Visit [facility] kirstin Aguilera MD (Maple) 111 [facility] [address] [place], [place] [phone] [place] [address] [place], [address] [place] [phone] (Wo rk) Social History Tobacco Use Types Packs/Day Years Used Date Never Assessed Sex Assigned at Date Recorded Not on file documented as of this encounter Progress Notes Tam Brennan MD - 02/24/2009 1842 EST DIVISION OF OTOLARYNGOLOGY PROGRESS/FOLLOWUP NOTE - 09/04/2005 S: Mr. Chawla is a little over a week status post right thyroid lobectomy for right thyroid mass. Hes done well since surgery with no voice problems or hypocalcemia symptoms. Hes had no incisional issues except mild discomfort as expected. O:examination today, he is alert and comfortable. Voice sounds normal. Cervical exam shows a normal postoperative appearance with mild edema above the incision. The stitches were removed without difficulty. There is no evidence of any cellulitis or collection. 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 A: Doing well after a right thyroid lobectomy for an adenomatous nodule. P: He will follow up with his primary care physician. He will follow up with Dr. Morataya as necessary. Signed by Tam Brennan MD 09/05/2005 15:41 Dasia Cortez MD Tam Brennan MD - Tam Brennan MD A - wlp Job ID: [id number] Document ID: [id number] cc: Dung Silver DO documented in this encounter Plan of Treatment Not on filedocumented as of this encounter Visit Diagnoses Not on filedocumented in this encounter Care Teams Internal Medicine Doctor Relationship Specialty Start Date End Date Dung Silver DO PCP - General 02/01/[address] [place] [address] [place] [address] documented as of this encounter
--- OUTSIDE RECORDS SUMMARY | 2021-11-15 00:51 | XMS_ITS | Encounter Summary ---
:1945 Author Organization [facility] Address [address] [place] [address] Care Team Providers Name Role Phone Dung Silver DO Primary Care Provider Encounter Details Date Type Department Care Team Description 10/29/2021 Lab Requisition [facility] Outr Resulting Lab, Pathology & Laboratory Provider [facility] [address] [place] [address] Social History Tobacco Use Types Packs/Day Years Used Date Never Assessed Sex Assigned at Date Recorded Not on file documented as of this encounter Plan of Treatment Not on filedocumented as of this encounter Procedures Procedure Name Priority Date/Time Associated Comments Diagnosis PSA TOTAL, Routine 10/29/2021 10:40 Results for this DIAGNOSTIC EDT procedure are i n the results section. documented in this encounter Results PSA TOTAL, DIAGNOSTIC (10/29/2021 10:40 EDT) Pathologist Sig nature PSA 3.2 <=6.5 ng/mL [facility] Specimen Blood - Venous blood (substance) Narrative [facility] - 10/29/2021 18:27 EDT NOTE: Serum PSA concentration should not be in terpreted as absolute evidence for the presence or absence of malignant disease. Assayed on Siemens ADVIA Centaur XPT usi ng chemiluminescent technology.??Values obtained by using different assay methods cannot be used interchangeably. Performing Organization Address City/State/ZIP Code Phon e Number [facility] [address] [place] [address] SERVICES documented in this encounter Visit Diagnoses Not on filedocumented in this encounter Care Teams Blasting Worker Relationship Specialty Start Date End Date Dung Silver, PCP - General 02/01/09 [address] [place] [address] documented as of this encounter
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
--- OUTSIDE RECORDS SUMMARY | 2021-11-15 00:51 | XMS_ITS | Clinical Summary ---
:1945 Author Organization [facility] Address [address] [place] [address] Care Team Providers Name Role Phone Dung Silver Dejah DO Primary Care Provider Encounters Date Type Specialty Care Team Description 10/29/2021 Lab Requisition Clinical Laboratory Outr Resulting Lab , Provider from Last 3 Months Social History Tobacco Use Types Packs/Day Years Used Date Never Assessed Sex Assigned at Date Recorded Not on file Plan of Treatment Health Maintenance Due Date Last Done Comments Hepatitis C Screen 1945 COVID-19 Vaccine (#1) 1945 Fall Risk Screening 06/19/2012 Procedures Procedure Name Priority Date/Time Associated Comments Diagnosis PSA TOTAL, Routine 10/29/2021 10:40 Results for this DIAGNOSTIC EDT procedure are i n the results section. from Last 3 Months Results PSA TOTAL, DIAGNOSTIC (10/29/2021 10:40 EDT) Pathologist Sig nature PSA 3.2 <=6.5 ng/mL [facility] Specimen Blood - Venous blood (substance) Narrative [facility] - 10/29/2021 18:27 EDT NOTE: Serum PSA concentration should not be in terpreted as absolute evidence for the presence or absence of malignant disease. Assayed on Siemens ADVIA Centaur XPT usi ng chemiluminescent technology.??Values obtained by using different assay methods cannot be used interchangeably. Performing Organization Address City/State/ZIP Code Phon e Number [facility] [address] [place] [address] SERVICES from Last 3 Months Insurance Payer Benefit Plan / Subscriber ID Effective Phone Address T ype Group Dates MEDICARE MEDICARE A/B [id number] 2014-Pres [address] edicare GL ent [id number] [phone] AETISABELLA AETISABELLA [facility] [id number] 2019-Pre [phone] Comme rcial GL SUPPLEMENTAL sent [phone] [place] [address] DentonHadley Carlos Personal/Family Self 1945 [address] (Home) [facility] [phone] MARGARITA [place]ORDOVA (Work) [id number] [place] Personal/Family Self 1945 [address] (Home) [place] [phone] MARG[place]ITA [place]ORD[place] (Work[place] [id number] Hadley Chawla Personal/Family Self 1945 [address] [facility] [phone] MARGARITA [place]ORD[place] (Work) [phone] Hadley Chawla Personal/Family Self 1945 [address] (Home) [facility] [phone] MARG[place]ITA [place]ORD[place] (Work) [phone] Care Teams Life Skills Consultant Relationship Specialty Start Date End Date Dung Silver, PCP - General 02/01/09 [address] [place] [id number]
--- OUTSIDE RECORDS SUMMARY | 2021-11-15 00:51 | XMS_ITS | Encounter Summary ---
:1945 Author Organization [facility] Address [address] [place] [address] Care Team Providers Name Role Phone Unavailable Primary Care Provider Unavailable Encounter Details Date Type Department Care Team Description 05/13/2005 Hospital Encounter [facility] - Alcira Hyawood Prospect MD [id number] [place] [id number] (Wo rk) Social History Tobacco Use Types Packs/Day Years Used Date Never Assessed Sex Assigned at Date Recorded Not on file documented as of this encounter Discharge Disposition Disposition Code Departure Means Destination Auto Discharge documented in this encounter Plan of Treatment Not on filedocumented as of this encounter Procedures Procedure Name Priority Date/Time Associated Diagnosis Comme nts THYROGLOBULIN, Routine 05/13/2005 14:56 Results f or this TUMOR MARKER, S EST procedure ar e in the results section. TSH Routine 05/13/2005 14:56 Results for this EST procedure are i n the results section. T4 FREE Routine 05/13/2005 14:56 Results for this EST procedure are i n the results section. documented in this encounter Results TSH (05/13/2005 14:56 EST) Pathologist Sig nature TSH 2.25 0.35 - 5.50 uIU/ml [facility] Specimen Performing Organization Address City/State/ZIP Code Phon e Number [facility] [address] [place] [address] SERVICES [facility] [address] [place] [address] THYROGLOBULIN TUMOR MARKER (05/13/2005 14:56 EST) Thyroglobulin <1.0Unit: IU/mL(Note) [facility] Antibody Screen -- EXPECTED VALUES -- ? LAB [address] (Ref Range) <=2.3 ? Thyroglobulin Tumor 24Unit: ng/mL(Note) [facility] Marker Specimens with thyroglobulin concentrations greater than ? LAB 250,000 ng/mL may give false ly lower results. ? Method is Clickslide Ac cess Immunoassay System. ? -- EXPECTED VALUES -- ? (Ref Range) <=33 ? Athyrotic individuals ? normally have hTg values ? less than 5 ng/mL. ? Serum markers are not specif ic for malignancy, and values ? may vary by method. ? Test Performed by: ? [facility] D[facility] of Lab Med a nd Pathology ? [address], [place] [address] ? Clinical Courier: Austin Mix M.D. ? Specimen Performing Organization Address City/State/ZIP Code Phon e Number [facility] [address] [place] [address] SERVICES [facility] [address] [place] [address] T4 FREE (05/13/2005 14:56 EST) Pathologist Sig nature Free T4 1.3 0.8 - 1.8 ng/dl [facility] Specimen Performing Organization Address City/[facility] Phon e Number [facility] [address] [place] [address] SERVICES [facility] [address] [place] [address] documented in this encounter Visit Diagnoses Not on filedocumented in this encounter
--- NOTE | 2021-11-15 07:30 | DI.US_ITS ---
Exam(s) US RENAL EXAM: US RENAL CLINICAL HISTORY: monitoring kidney stones, KIDNEY STONES, N20.0 TECHNIQUE: Ultrasound performed using standard protocol. COMPARISON: No exams were available for comparison FINDINGS: Bilateral renal ultrasound was performed. Kidneys are normal in size and shape. On the right, there is question of mild hydronephrosis. No nephrolithiasis confirmed on the right. On the left, there is question of mild hydronephrosis. There are calculi in upper and lower poles of the kidney measuring respectively about 8 millimeters and 15 millimeters in greatest diameter. Urinary bladder is unremarkable in appearance with pre and postvoid bladder volume measurements 139 c c and 6 cc respectively. Ureteral jets were noted bilaterally. IMPRESSION: Question mild bilateral hydronephrosis. Correlation with CT urogram suggested. Left-sided nephrolithiasis is seen, prior CT of October 2020 showed bilateral nephrolithiasis. DATA REPOSITORY:
== END ==
PROVIDERS: PCP Family Medicine; Visit Provider Nurse Practitioner Gerontology
DX: N20.0 Calculus of kidney (principal); N13.30 Unspecified hydronephrosis
CPT/HCPCS: 76770

== ENCOUNTER → 2021-11-21 10:39 | Outpatient (BNVA) | payer MEDICARE, SELFPAY | PROVIDERS: PCP Family Medicine; Referring Provider Emergency Medicine; Visit Provider Nurse Practitioner Gerontology | DX: R31.29 Other microscopic hematuria (principal); N20.0 Calculus of kidney; N13.30 Unspecified hydronephrosis; R97.20 Elevated prostate specific antigen [PSA] | CPT/HCPCS: 81003; 99214 ==

== ENCOUNTER → 2021-12-10 01:52 | Outpatient (CLI) | payer MEDICARE, SELFPAY ==
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
[2021-12-10] MEDS: Omnipaque 350 MG/ML 500 ML BTL-Imaging package IJ (08:40)
== END ==
PROVIDERS: PCP Family Medicine; Visit Provider Nurse Practitioner Gerontology
DX: N13.30 Unspecified hydronephrosis (principal); R31.9 Hematuria, unspecified; N20.0 Calculus of kidney; N28.1 Cyst of kidney, acquired; N40.0 Benign prostatic hyperplasia without lower urinary tract symptoms
CPT/HCPCS: 74178

== ENCOUNTER 2022-10-20 02:50 | Outpatient (CLI) | payer MEDICARE, SELFPAY ==
[2022-10-20 12:20] LABS: Abs Immature Grans 0.02 10^3/uL (0.0-0.06); Absolute Basophil Count 0.03 10^3/uL (0.0-0.2); Absolute Eosinophil Count 0.11 10^3/uL (0.0-0.7); Absolute Lymphocyte Count 1.17 10^3/uL (1.2-3.4); Absolute Monocyte Count 0.48 10^3/uL (0.1-0.8); Absolute Neutrophil Count 4.27 10^3/uL (1.2-6.7); Basophils % 0.5; Eosinophils % 1.8; HCT 45.4 % (40.0-50.0); HGB 15.9 g/dL (13.5-17.5); Immature Grans % 0.3; Lymphocytes % 19.2; MCH 31.6 pg (27.0-33.0); MCV 90 fL (80-95); MPV 10.5 fL (8.0-11.0); Monocytes % 7.9; Neutrophils % 70.3; Platelet Count 105 10^3/uL (130-400); RBC 5.03 10^6/uL (4.36-5.78); RDW 12.2 % (11.8-14.1); RDW-SD 40.5 fL; WBC 6.08 10^3/uL (4.4-10.8)
[2022-10-20 12:41] LABS: Anion Gap 5.6 mmol/L (3-11); BUN 17 mg/dL (7-18); CO2 32.4 mmol/L (21.0-32.0); CREATININE 1.1 mg/dL (0.70-1.30); Chloride 102 mmol/L (98-107); Estimated GFR 70.01 (mL/min/1.73m2); Glucose 116 mg/dL (74-106); Potassium 3.4 mmol/L (3.5-5.1); Sodium 140 mmol/L (136-145)
[2022-10-20 22:46] LABS: PSA, Diagnostic 1.6 ng/mL (<=6.5)
== END 2022-10-20 02:51 | disposition home or self-care (01) ==
PROVIDERS: Nurse Practitioner Gerontology; PCP Family Medicine; Visit Provider Family Medicine
DX: D69.3 Immune thrombocytopenic purpura (principal); I10 Essential (primary) hypertension; R97.20 Elevated prostate specific antigen [PSA]
CPT/HCPCS: 36415; 80048; 84153; 85025

== ENCOUNTER → 2022-11-25 08:18 | Outpatient (BNVA) | payer MEDICARE, SELFPAY | PROVIDERS: PCP Family Medicine; Referring Provider Family Medicine; Visit Provider Nurse Practitioner Gerontology | DX: N20.0 Calculus of kidney (principal); R31.29 Other microscopic hematuria | CPT/HCPCS: 81003; 99213 ==

== ENCOUNTER 2022-11-25 09:01 | Outpatient (REF) | payer MEDICARE, SELFPAY ==
[2022-11-25 09:29] LABS: Bilirubin Negative (Negative); Blood Small (Negative); Clarity Clear (Clear); Glucose Negative (Negative); Ketones Negative (Negative); Leukocyte Esterase Negative (Negative); Nitrite Negative (Negative); Specific Gravity >= 1.030 (1.005-1.025); Urobilinogen 0.2 mg/dL (Up to 0.2); pH 5.5 (5-8)
[2022-11-25 09:38] LABS: WBC 0-2 HPF (0-5)
[2022-11-25 09:39] LABS: Bacteria Rare HPF (Negative); C & S Indicated? No; Casts Negative LPF (Negative); Crystals Negative HPF (Negative); Epithelial Cells Few HPF (Negative); Mucus Moderate (Negative)
== END 2022-11-25 09:02 | disposition home or self-care (01) ==
LOC: LBN 09:01
PROVIDERS: PCP Family Medicine; Visit Provider Nurse Practitioner Gerontology
DX: R31.29 Other microscopic hematuria (principal); R82.998 Other abnormal findings in urine
CPT/HCPCS: 81003; 81015

== ENCOUNTER 2023-10-22 18:46 | Outpatient (REF) | payer MEDICARE, SELFPAY ==
[2023-10-22 11:48] LABS: Bilirubin Negative (Negative); Blood Trace-intact (Negative); Clarity Clear (Clear); Glucose Negative (Negative); Ketones Negative (Negative); Leukocyte Esterase Negative (Negative); Nitrite Negative (Negative); Specific Gravity 1.025 (1.005-1.025); Urobilinogen 0.2 mg/dL (Up to 0.2); pH 6.5 (5-8)
[2023-10-22 11:53] LABS: Abs Immature Grans 0.03 10^3/uL (0.0-0.06); Absolute Basophil Count 0.03 10^3/uL (0.0-0.2); Absolute Eosinophil Count 0.12 10^3/uL (0.0-0.7); Absolute Lymphocyte Count 1.37 10^3/uL (1.2-3.4); Absolute Monocyte Count 0.39 10^3/uL (0.1-0.8); Absolute Neutrophil Count 2.73 10^3/uL (1.2-6.7); Basophils % 0.6 %; Eosinophils % 2.6 %; HCT 48.7 % (40.0-50.0); HGB 16.6 g/dL (13.5-17.5); Immature Grans % 0.6 %; Lymphocytes % 29.3 %; MCH 31.5 pg (27.0-33.0); MCHC 34.1 % (32.0-36.0); MCV 92 fL (80-95); MPV 11.3 fL (8.0-11.0); Monocytes % 8.4 %; Neutrophils % 58.5 %; Platelet Count 102 10^3/uL (130-400); RBC 5.27 10^6/uL (4.36-5.78); RDW 12.1 % (11.8-14.1); RDW-SD 41.6 fL; WBC 4.67 10^3/uL (4.4-10.8)
[2023-10-22 12:01] LABS: Bacteria Negative HPF (Negative); C & S Indicated? No; Casts Negative LPF (Negative); Crystals Negative HPF (Negative); Epithelial Cells Rare HPF (Negative); Mucus Negative (Negative); RBC 0-2 HPF (0-2); WBC Negative HPF (0-5)
[2023-10-22 12:17] LABS: Anion Gap 3.3 mmol/L (3-11); BUN 21 mg/dL (7-18); CO2 33.7 mmol/L (21.0-32.0); CREATININE 1.2 mg/dL (0.70-1.30); Calcium 9.2 mg/dL (8.5-10.1); Calculated LDL 84 mg/dL (<100); Chloride 104 mmol/L (98-107); Cholesterol 154 mg/dL (<200); Estimated GFR 62.67 (mL/min/1.73m2); Glucose 102 mg/dL (74-106); HDL Cholesterol 61 mg/dL (40-60); Potassium 4.2 mmol/L (3.5-5.1); Sodium 141 mmol/L (136-145); TSH (W/Ref FT4) 5.85 uIU/mL (0.36-3.74); Triglyceride 47 mg/dL (<150)
[2023-10-22 12:36] LABS: FREE T4 0.87 ng/dL (0.76-1.46)
== END 2023-10-22 18:47 | disposition home or self-care (01) ==
LOC: LBO 18:46
PROVIDERS: PCP Family Medicine; Visit Provider Family Medicine
DX: R30.0 Dysuria (principal); R31.29 Other microscopic hematuria; D69.3 Immune thrombocytopenic purpura; E89.0 Postprocedural hypothyroidism; Z13.6 Encounter for screening for cardiovascular disorders; E78.00 Pure hypercholesterolemia, unspecified; I10 Essential (primary) hypertension
CPT/HCPCS: 80048; 80061; 81003; 81015; 84439; 84443; 85025

== ENCOUNTER → 2023-11-25 08:22 | Outpatient (BNVA) | payer MEDICARE, SELFPAY | PROVIDERS: PCP Family Medicine; Visit Provider Nurse Practitioner Gerontology | DX: N20.0 Calculus of kidney (principal); R31.29 Other microscopic hematuria | CPT/HCPCS: 51798; 99213 ==

== ENCOUNTER 2024-11-01 09:05 | Outpatient (CLI) | payer MEDICARE, SELFPAY ==
[2024-11-01 09:05] LABS: Abs Immature Grans 0.01 10^3/uL (0.0-0.06); HCT 45.6 % (40.0-50.0); HGB 15.4 g/dL (13.5-17.5); Immature Grans % 0.2 %; MCH 30.6 pg (27.0-33.0); MCHC 33.8 % (32.0-36.0); MCV 91 fL (80-95); MPV 10.0 fL (8.0-11.0); Platelet Count 108 10^3/uL (130-400); RBC 5.03 10^6/uL (4.36-5.78); RDW 12.0 % (11.8-14.1); RDW-SD 39.9 fL; WBC 4.12 10^3/uL (4.4-10.8)
[2024-11-01 09:41] LABS: Anion Gap 3.8 mmol/L (3-11); BUN 21 mg/dL (7-18); CO2 35.2 mmol/L (21.0-32.0); Calcium 9.2 mg/dL (8.5-10.1); Chloride 105 mmol/L (98-107); Estimated GFR 69.14 (mL/min/1.73m2); Glucose 116 mg/dL (74-106); Potassium 4.0 mmol/L (3.5-5.1); Sodium 144 mmol/L (136-145); TSH (W/Ref FT4) 2.98 uIU/mL (0.36-3.74)
[2024-11-01 19:22] LABS: PSA, Screening 2.3 ng/mL (<=6.5)
== END 2024-11-01 09:06 | disposition home or self-care (01) ==
LOC: LBO 09:06
PROVIDERS: PCP Family Medicine; Visit Provider Family Medicine
DX: Z13.1 Encounter for screening for diabetes mellitus (principal); I10 Essential (primary) hypertension; E03.9 Hypothyroidism, unspecified; Z12.5 Encounter for screening for malignant neoplasm of prostate; D69.3 Immune thrombocytopenic purpura
CPT/HCPCS: 36415; 80048; 84153; 84443; 85025

== ENCOUNTER 2024-11-23 08:13 | Outpatient (REF) | payer MEDICARE, SELFPAY ==
[2024-11-23 09:42] LABS: Glucose Negative (Negative)
[2024-11-23 09:53] LABS: C & S Indicated? No; WBC Negative HPF (0-5)
== END 2024-11-23 08:14 | disposition home or self-care (01) ==
LOC: LBN 08:13
PROVIDERS: PCP Family Medicine; Visit Provider Nurse Practitioner Gerontology
DX: R31.29 Other microscopic hematuria (principal)
CPT/HCPCS: 81003; 81015